=== PATIENT | female | born 1955 | race Caucasian/White ===

== ENCOUNTER 2023-02-22 10:43 | Outpatient (REF) | payer OTHER, SELFPAY ==
[2023-02-22 14:27] LABS: MANUAL DIFF FLAG NO
[2023-02-22 14:37] LABS: Basophils Percent Auto 0.6 % (0-2); Eosinophils Absolute Auto 0.3 X10*3/uL (0.0-0.4); Eosinophils Percent Auto 5.9 % (0-4); Hematocrit 42.3 % (37.0-47.0); Hemoglobin 14.2 g/dl (12.0-16.0); Lymphocytes Absolute Auto 1.7 X10*3/uL (1.2-4.9); Lymphocytes Percent Auto 32.4 % (20-40); Mean Corpuscular HGB Conc 33.6 g/dl (31.0-35.0); Mean Corpuscular Hemoglobin 31.1 pg (27.0-33.0); Mean Corpuscular Volume 92.6 fL (80.0-98.0); Mean Platelet Volume 9.4 fL (9.4-12.3); Monocytes Absolute Auto 0.4 X10*3/uL (0.1-1.2); Monocytes Percent Auto 7.4 % (2-11); Neutrophils Absolute Auto 2.8 x10*3/uL (2.0-8.3); Neutrophils Percent Auto 53.7 % (45-73); Platelet Count 277 X10*3/uL (160-400); Red Blood Count 4.57 X10*6/uL (4.20-5.50); Red Cell Distribution Width 12.2 % (11.0-16.0); White Blood Count 5.1 X10*3/uL (4.8-10.8)
[2023-02-22 14:56] LABS: Alanine Aminotransferase 25 U/L (0-31); Albumin Level 4.3 g/dL (3.5-5.0); Alkaline Phosphatase 68 U/L (39-117); Anion Gap 10 (12-20); Aspartate Amino Transferase 26 U/L (5-31); Bilirubin Total 0.8 mg/dL (0.0-1.0); Blood Urea Nitrogen 13 mg/dL (9-16); Calcium 9.8 mg/dL (8.4-10.2); Carbon Dioxide 26 mmol/L (22-29); Chloride 108 mmol/L (96-108); Cholesterol 195 mg/dL; Estimated Glomerular Filt Rate > 60; Glucose Fasting 107 mg/dL (60-99); HDL Cholesterol 59 mg/dL; Iron 97 mcg/dL (30-160); LDL Cholesterol Calculated 118 mg/dl; Percent Iron Saturation 29 % (15-50); Potassium 4.2 mmol/L (3.3-5.1); Sodium 140 mmol/L (135-145); Total Iron Binding Capacity 332 mcg/dL (228-428); Total Protein 7.3 g/dL (6.5-8.0); Triglycerides 90 mg/dL; Unsaturated Iron Binding 235 ug/dL
[2023-02-22 15:13] LABS: TSH reflex Free T4 2.07 uIU/mL (0.32-4.0); Vitamin D 25-OH Total 60.1 ng/mL (>30)
[2023-02-22 15:14] LABS: Vitamin B12 369 pg/mL (200-900)
[2023-02-22 15:56] LABS: Monotest Negative (Negative)
== END 2023-02-22 10:44 | disposition home or self-care (01) ==
LOC: HO.WFDLDS 10:43
PROVIDERS: Visit Provider Internal Medicine
DX: E78.5 Hyperlipidemia, unspecified (principal); R53.82 Chronic fatigue, unspecified
CPT/HCPCS: 36415; 80053; 80061; 82306; 82533; 82607; 83540; 84443; 85025; 86308

== ENCOUNTER → 2023-04-12 09:52 | Outpatient (REF) | payer MEDICARE, SELFPAY ==
--- NOTE | 2023-04-12 10:01 | CA_ITS ---
Acquisition Time: 2023-04-12 10:18:14 Total Exercise Time: 00:05:03 Test Indications: ABN EKG Medications: SEE H Protocol: JULIENNE Max HR: 160 BPM 105% of Pred: 152 BPM Max BP: 200/060 mmHG Max Work Load: 6.3 METS Exercise stress test exercise 5 min 3 sec of Julienne protocol achieving 105% MPHR, without chest discomfort, with moderate SOB, with isolated PVCs, with starting BP 120/80 - max BP 200/60, without EKG changes. Bps returned to baselien with rest. Test reviewed with Dr. Espinoza Referred By: Ginette Benson Overread By: Smita Orosco
== END ==
LOC: HO.CARD 09:52
PROVIDERS: PCP Internal Medicine; Visit Provider Internal Medicine
DX: R07.9 Chest pain, unspecified (principal); Z82.49 Family history of ischemic heart disease and other diseases of the circulatory system
CPT/HCPCS: 93017

== ENCOUNTER → 2023-04-12 10:01 | Outpatient (BNV) | payer MEDICARE, SELFPAY | PROVIDERS: PCP Internal Medicine; Visit Provider Nurse Practitioner | DX: R94.31 Abnormal electrocardiogram [ECG] [EKG] (principal) | CPT/HCPCS: 93016; 93018 ==

== ENCOUNTER 2023-04-27 11:50 | Outpatient (REF) | payer MEDICARE, SELFPAY ==
--- NOTE | ~2023-04-27 | MM_ITS ---
EXAMINATION: MM SCREENING DIGITAL BREAST TOMOSYNTHESIS, BILATERAL CLINICAL INFORMATION: Screening. Asymptomatic. COMPARISON: Mammography: This study is compared with prior exams dating back to 2021. TECHNIQUE: Digital breast tomosynthesis is performed in both the craniocaudal and mediolateral oblique views along with computer-aided detection (CAD). Synthesized 2D images are generated from the tomosynthesis. FINDINGS: The breasts are almost entirely fatty (ACR BI-RADS breast composition Category a). There are no significant masses, abnormal calcifications, or other abnormalities. MM/MM tomosynthesis screening BI IMPRESSION: No mammographic evidence of malignancy. ASSESSMENT: BI-RADS BI-RADS 1 - Negative RECOMMENDATION: Routine annual mammography screening. 1 year F/U This examination should not preclude the clinical evaluation of a suspicious palpable abnormality. This patient's information was entered into a reminder system with a target due date for their next mammogram.
== END 2023-04-27 11:51 | disposition home or self-care (01) ==
LOC: HO.MAMMO 11:50
PROVIDERS: PCP Internal Medicine; Visit Provider Internal Medicine
DX: Z12.31 Encounter for screening mammogram for malignant neoplasm of breast (principal)
CPT/HCPCS: 77063; 77067

== ENCOUNTER → 2023-04-27 12:00 | Outpatient (BNV) | payer MEDICARE, SELFPAY | PROVIDERS: PCP Internal Medicine; Visit Provider Radiology Diagnostic Radiology | DX: Z12.31 Encounter for screening mammogram for malignant neoplasm of breast (principal) | CPT/HCPCS: 77063; 77067 ==

== ENCOUNTER 2023-10-24 08:35 | Outpatient (REF) | payer MEDICARE, SELFPAY ==
[2023-10-24 11:38] LABS: Appearance Urine Clear; Color Urine Dark Yellow; Glucose Urine UA Negative (Negative); Leukocyte Esterase Urine Small (1+) (Negative); Nitrite Urine Negative (Negative); PH 5.5 (5.0-9.0); Specific Gravity - Urine 1.025 (1.005-1.025); UMIC TRIGGER UA YES; Urine Blood Negative (Negative); Urine Ketones Negative (Negative); Urine Protein Negative (Neg-Trace)
[2023-10-24 11:57] LABS: Bacteria Urine None Seen (None Seen); Calcium Oxalate Crystals Urine Present; Hyaline Casts Urine 0-2 /LPF (0-2); RBC Urine 0-2 /HPF (0-2)
[2023-10-24 12:05] LABS: MANUAL DIFF FLAG NO
[2023-10-24 12:18] LABS: Basophils Percent Auto 0.5 % (0-2); Eosinophils Absolute Auto 0.2 X10*3/uL (0.0-0.4); Eosinophils Percent Auto 4.3 % (0-4); Hematocrit 41.8 % (37.0-47.0); Hemoglobin 14.3 g/dl (12.0-16.0); Imm Gran Abs Auto 0.02 X10*3/uL (0.00-0.03); Imm Gran Pct Auto 0.4 % (0.0-0.4); Lymphocytes Absolute Auto 2.6 X10*3/uL (1.2-4.9); Lymphocytes Percent Auto 46.5 % (20-40); Mean Corpuscular HGB Conc 34.2 g/dl (31.0-35.0); Mean Corpuscular Hemoglobin 31.5 pg (27.0-33.0); Mean Corpuscular Volume 92.1 fL (80.0-98.0); Mean Platelet Volume 8.9 fL (9.4-12.3); Monocytes Absolute Auto 0.5 X10*3/uL (0.1-1.2); Monocytes Percent Auto 8.8 % (2-11); Neutrophils Absolute Auto 2.2 x10*3/uL (2.0-8.3); Neutrophils Percent Auto 39.5 % (45-73); Platelet Count 296 X10*3/uL (160-400); Red Blood Count 4.54 X10*6/uL (4.20-5.50); Red Cell Distribution Width 12.3 % (11.0-16.0); White Blood Count 5.6 X10*3/uL (4.8-10.8)
[2023-10-24 12:28] LABS: Estimated Average Glucose 91 mg/dL; Hemoglobin A1c % 4.8 % (<6.0)
[2023-10-24 12:45] LABS: Alanine Aminotransferase 32 U/L (0-31); Albumin Level 4.2 g/dL (3.5-5.0); Alkaline Phosphatase 71 U/L (39-117); Anion Gap 11 (12-20); Aspartate Amino Transferase 27 U/L (5-31); Bilirubin Total 0.6 mg/dL (0.0-1.0); Blood Urea Nitrogen 25 mg/dL (9-16); Calcium 9.7 mg/dL (8.4-10.2); Carbon Dioxide 26 mmol/L (22-29); Chloride 107 mmol/L (96-108); Cholesterol 225 mg/dL (<200); Estimated Glomerular Filt Rate > 60; Glucose Fasting 101 mg/dL (60-99); HDL Cholesterol 56 mg/dL (>40); LDL Cholesterol Calculated 129 mg/dL (<100); Potassium 4.1 mmol/L (3.3-5.1); Sodium 140 mmol/L (135-145); Total Protein 7.2 g/dL (6.5-8.0); Triglycerides 204 mg/dL (<150)
[2023-10-24 12:55] LABS: Vitamin B12 537 pg/mL (200-900)
[2023-10-24 13:06] LABS: TSH reflex Free T4 3.84 uIU/mL (0.32-4.0); Vitamin D 25-OH Total 34.2 ng/mL (>30)
[2023-10-25 19:19] LABS: Lyme Abs Screen <0.90 index
== END 2023-10-24 08:36 | disposition home or self-care (01) ==
LOC: HO.WFDLDS 08:35
PROVIDERS: Visit Provider Internal Medicine
DX: E78.00 Pure hypercholesterolemia, unspecified (principal); F32.A Depression, unspecified; R53.83 Other fatigue; R35.1 Nocturia
CPT/HCPCS: 36415; 80053; 80061; 81001; 82306; 82607; 83036; 84443; 85025; 86617; 86618; 87086

== ENCOUNTER 2024-03-08 12:38 | Outpatient (REF) | payer MEDICARE, SELFPAY ==
[2024-03-08 14:14] LABS: MANUAL DIFF FLAG NO
[2024-03-08 14:35] LABS: Basophils Absolute Auto 0.1 X10*3/uL (0.0-0.2); Eosinophils Absolute Auto 0.3 X10*3/uL (0.0-0.4); Eosinophils Percent Auto 5.5 % (0-4); Hematocrit 41.3 % (37.0-47.0); Hemoglobin 14.1 g/dl (12.0-16.0); Imm Gran Abs Auto 0.03 X10*3/uL (0.00-0.03); Imm Gran Pct Auto 0.6 % (0.0-0.4); Lymphocytes Absolute Auto 1.3 X10*3/uL (1.2-4.9); Lymphocytes Percent Auto 24.6 % (20-40); Mean Corpuscular HGB Conc 34.1 g/dl (31.0-35.0); Mean Corpuscular Volume 93.7 fL (80.0-98.0); Monocytes Absolute Auto 0.5 X10*3/uL (0.1-1.2); Monocytes Percent Auto 9.2 % (2-11); Neutrophils Percent Auto 59.1 % (45-73); Platelet Count 274 X10*3/uL (160-400); Red Blood Count 4.41 X10*6/uL (4.20-5.50); Red Cell Distribution Width 12.5 % (11.0-16.0); White Blood Count 5.1 X10*3/uL (4.8-10.8)
[2024-03-08 14:37] LABS: Estimated Average Glucose 85 mg/dL; Hemoglobin A1C 99.8135 umol/L; Hemoglobin A1c % 4.6 % (<6.0)
[2024-03-08 14:47] LABS: Cholesterol 179 mg/dL (<200); HDL Cholesterol 63 mg/dL (>40); LDL Cholesterol Calculated 100 mg/dL (<100); Triglycerides 81 mg/dL (<150)
[2024-03-08 14:49] LABS: Alanine Aminotransferase 41 U/L (0-31); Albumin Level 4.3 g/dL (3.5-5.0); Alkaline Phosphatase 74 U/L (39-117); Anion Gap 9 (12-20); Aspartate Amino Transferase 38 U/L (5-31); Bilirubin Direct 0.2 mg/dL (0.0-0.5); Bilirubin Total 0.8 mg/dL (0.0-1.0); Blood Urea Nitrogen 11 mg/dL (9-16); C Reactive Protein 0.33 mg/dL (< or = 0.50); Carbon Dioxide 28 mmol/L (22-29); Chloride 105 mmol/L (96-108); Estimated Glomerular Filt Rate > 60; Glucose Random 99 mg/dL (60-115); Potassium 4.2 mmol/L (3.3-5.1); Sodium 138 mmol/L (135-145); Total Protein 7.3 g/dL (6.5-8.0)
[2024-03-08 17:49] LABS: Appearance Urine Cloudy; Color Urine Dark Yellow; Glucose Urine UA Negative (Negative); Leukocyte Esterase Urine Negative (Negative); Nitrite Urine Negative (Negative); Urine Blood Negative (Negative); Urine Ketones Negative (Negative); Urine Protein Negative (Neg-Trace)
== END 2024-03-08 12:39 | disposition home or self-care (01) ==
LOC: HO.WFDLDS 12:38
PROVIDERS: Internal Medicine Rheumatology; Visit Provider Internal Medicine
DX: L40.50 Arthropathic psoriasis, unspecified (principal); R79.89 Other specified abnormal findings of blood chemistry; R73.09 Other abnormal glucose; E78.5 Hyperlipidemia, unspecified; Z13.9 Encounter for screening, unspecified
CPT/HCPCS: 36415; 80053; 80061; 81003; 82248; 83036; 85025; 86140

== ENCOUNTER 2024-03-30 09:27 | Outpatient (AMB) | payer MEDICARE, SELFPAY ==
--- NOTE | 2024-03-30 09:32 | MHC.PC.OV ---
Vital Signs 03/30/24 09:37 Height 5 ft 3 in Weight 194 lb BMI 34.4 BP 148/88 H Blood Pressure Location Lt brachial Position Sitting Respiration 12 Pulse 89 Pulse Source Pulse Oximeter Pulse Oximetry (%) 95 Oxygen Delivery Method Room Air Intake Visit Reasons: 6 month fu Intake Note: Patient is here to transition care from [facility] to [facility] for care with Dr. Benson. Patient is here for a 6 month follow up. Patient reports she has an abscessed tooth. Patient reports she is taking antibiotics and unsure which antibiotic she is currently taking. Loan Assistant Required: No Accompanied by: Self / Same As Patient Allergies No Known Allergies Allergy (Verified 03/30/24 09:44) Tobacco use date assessed: 03/30/24 Fall risk assessment: No Falls in past year Last assessed Fall Risk: 03/30/24 Dental Screening Dental Screen Date: 03/30/24 Did you have a dental visit in the last 12 months?: Yes Did you have a dental problem in the last 6 months where you did not have access to dental care?: No Was dental information given to patient?: Patient has dentist HPI HPI Comments History of Present Illness Details The patient is a 68 year old female wit a past medical history of psoriatic arthritis, depression ADD, hyperlipidemia, presenting for follow up Psoriatric arthritis: On enbrel once weekly injections and sulfasalazine 1000mg twice daily. Takes folic acid 1mg daily. Follows with rehumatology at [facility]. Sees every 6 months to a year Depression/ADD: On venlafaxine 150mg daily and Adderall 20mg daily. Does reports some fatigue. Reports frequent snoring and awakening CV: On fluvastatin. Normal stress test 2022. Still has some shortness of breath with activity. Denies chest pain. Preventive: Colonoscopy 2019-recommended 3 year. Has order Mammogram-utd ROS see HPI PHYSICAL EXAM: GENERAL: Alert and oriented x 3. NAD EYES: EOMI. Anicteric. HENT: Moist mucous membranes. Narrow oropharynx. No scleral icterus. No cervical lymphadenopathy. LUNGS: Clear to auscultation bilaterally. CARDIOVASCULAR: Regular rate and rhythm. ABDOMEN: Soft, non-tender +bs EXTREMITIES: No edema. Non-tender. SKIN: No rashes or lesions. Warm. NEUROLOGIC: No focal neurological deficits. CN II-XII grossly intact PSYCHIATRIC: Cooperative. Appropriate mood and affect [facility] Medical History (Updated 03/31/24 @ 09:52 by Ginette Benson MD) History of mammogram Psoriatic arthritis Osteoporosis High cholesterol Depression Arthritis ADD (attention deficit disorder) Surgical History Hx of varicose vein ligation History of colonoscopy Family History Mother Pneumonia Father Asbestos exposure Lung cancer Sister Dysphagia High cholesterol Brother High cholesterol Obesity Brother Dysphagia Heart disease Brother Heart attack Kidney disease Social History Household Members: Spouse Both parents involved: No Caregiver staying overnight: No Housing: House Are you a primary acute care physician to a significant other at home: No Do you presently have visiting nurse or other home services: No 75 years or older and lives alone: No Alcohol intake: never Patient Tobacco Use Status: Never used Tobacco e-Cigarette/Vaping Use: Never Used service: No Current occupational status: retired Cognitive needs: No Hearing needs: No Vision needs: No Questionnaire PHQ-9 Over the last 2 weeks, how often have you been bothered by any of the following problems? 1. Little interest or pleasure in doing things: not at all 2. Feeling down, depressed, or hopeless: not at all 3. Trouble falling or staying asleep, or sleeping too much: not at all 4. Feeling tired or having little energy: not at all 5. Poor appetite or overeating: not at all 6. Feeling bad about yourself - or that you are a failure or have let yourself or your family down: not at all 7. Trouble concentrating on things, such as reading the newspaper or watching television: not at all 8. Moving or speaking so slowly that other people could have noticed. Or the opposite - being so fidgety or restless that you have been moving around a lot more than usual: not at all 9. Thoughts that you would be better off or of hurting yourself in some way: not at all Total score: 0 Depression Screening Interpretation: Negative (neg) Depression Screening Done: Yes 41238 - PHQ-9 Billing: Yes Source: Developed by Drs. Mak Caballero, Sayra Bowles, Winston Mitchell and colleagues, with an educational vinicio from [employer]. Thrive Questionnaire Date Thrive assessed: 03/27/24 I am a: Patient What is your living situation today?: I have a steady place to live Within the past 12 months, did the food you bought not last and you didn't have the money to get more?: Never true Within the past 12 months, did you worry whether your food would run out before you got money to buy more?: Never true Do you have trouble paying for medicines?: No Do you have trouble getting transportation to medical appointments?: No Do you have trouble paying your heating and electricity bill?: No Do you have trouble taking care of your child, family member or friend?: No Do you have trouble with day-to-day activities such as bathing, preparing meals, shopping, managing finances, etc.?: No Are you currently unemployed and looking for a job?: No Are you interested in more education?: No Please select the resources that you would like help with: None Currently or been in a relationship where the following occur: No concerns reported THRIVE Score: 0 AUDIT C Alcohol Use Questionnaire (AUDIT-C) 1. How often do you have a drink containing alcohol?: Monthly or less 2. How many drinks containing alcohol do you have on a typical day when you are drinking?: 1 or 2 3. How often do you have six or more drinks on one occasion?: Never Total Score: 1 RONADL-7 AMB Questionnaire RONALD-7 Date RONALD - 7 assessed: 03/30/24 Feeling nervous, anxious, or on edge: 0 = Not at all Not being able to stop or control worryin = Not at all Worrying too much about different things: 0 = Not at all Trouble relaxin = Not at all Being so restless that it is hard to sit still: 0 = Not at all Becoming easily annoyed or irritable: 0 = Not at all Feeling afraid as if something awful might happen: 0 = Not at all Total RONALD-7 score (0-4 normal; 5-9 mild; 10-14 moderate; 15-21 severe): 0 Source: Developed by Sayra Vaughn Kurt Kroenke and colleagues, with an educational vinicio from [employer]. RONALD-7 Assessment Billing RONALD-7 Assessment Tool: RONALD-7 Assessment 00773 Physical exam (Primary Care) Vital Signs: Last Vital Signs Pulse 89 03/30/24 09:37 Resp 12 03/30/24 09:37 BP 148/88 H 03/30/24 09:37 Pulse Ox 95 03/30/24 09:37 Oxygen Delivery Method Room Air 03/30/24 09:37 BMI result Body Mass Index 34.4 Tobacco/Smoking Status: Tobacco use Status Tobacco use date assessed 03/30/24 03/30/24 09:45 Patient Tobacco Use Status Never used Tobacco 03/30/24 09:48 e-Cigarette/Vaping Use Never Used 03/30/24 09:48 PHQ-9: PHQ-9 Score PHQ-9: Total score 0 03/30/24 09:54 Depression Screening Interpretation: Negative (neg) Thrive Assessment: Date of Thrive Assessment Date Thrive assessed 03/27/24 03/30/24 09:35 Currently or been in a relationship where the following occur: No concerns reported Assessment and Plan Assessment & Plan (1) Psoriatic arthritis: Code(s): L40.50 - Arthropathic psoriasis, unspecified Plan: continue rheumatology follow up stable symptoms (2) Fatigue: Code(s): R53.83 - Other fatigue Qualifiers: Fatigue type: chronic, unspecified Qualified Code(s): R53.82 - Chronic fatigue, unspecified Plan: Reviewed labs Depressive symptoms well controlled Snoring, apnea-referral for home sleep study Orders: Referrals Sleep Medicine Referral R06.83 - Snoring, R53.83 - Other fatigue Medications: New venlafaxine ER 150 mg PO DAILY 90 caps 3RF dextroamphetamine-amphetamine 30 mg ER 1 cap PO QAM 60 days 60 caps 0RF F98.8 - Other specified behavioral and emotional disorders with onset usually occurring in childhood and adolescence fluvastatin 40 mg PO BEDTIME 90 caps 3RF Coding Level of Care Code Est Pt Level 5 (34026) Diagnoses Psoriatic arthritis L40.50 Chronic fatigue R53.82 Fatigue type: chronic, unspecified Additional Codes RONALD-7 Assessment Billing - RONALD-7 Assessment Tool: RONALD-7 Assessment 38352 ([id number]) Time Spent (min) 50
[2024-03-30 09:37] VITALS: BP 148/88; PULSE 89; RESP 12; O2SAT 95; BMI 34.4
== END 2024-03-30 10:24 | disposition home or self-care (01) ==
PROVIDERS: PCP Internal Medicine; Visit Provider Internal Medicine
DX: R53.82 Chronic fatigue, unspecified (principal); L40.50 Arthropathic psoriasis, unspecified
CPT/HCPCS: 99215

== ENCOUNTER 2024-05-21 13:15 | Outpatient (REF) | payer MEDICARE, SELFPAY ==
--- NOTE | ~2024-05-21 | MM_ITS ---
EXAMINATION: MM SCREENING DIGITAL BREAST TOMOSYNTHESIS, BILATERAL CLINICAL INFORMATION: Screening. Asymptomatic. COMPARISON: Mammography: Comparison is made with available priors TECHNIQUE: Digital breast mammography with tomosynthesis is performed in both the craniocaudal and mediolateral oblique views along with computer-aided detection (CAD). FINDINGS: There are scattered areas of fibroglandular density (ACR BI-RADS breast composition Category b). There are no significant masses, abnormal calcifications, or other abnormalities. MM/MM tomosynthesis screening BI IMPRESSION: No mammographic evidence of malignancy. ASSESSMENT: BI-RADS BI-RADS 1 - Negative RECOMMENDATION: Routine annual mammography screening. 1 year F/U This examination should not preclude the clinical evaluation of a suspicious palpable abnormality. This patient's information was entered into a reminder system with a target due date for their next mammogram. Electronically signed by: Dasia Morgan DO 05/29/2024 02:24 PM DARIUSZ
== END 2024-05-21 13:16 | disposition home or self-care (01) ==
LOC: HO.MAMMO 13:15
PROVIDERS: PCP Internal Medicine; Visit Provider Internal Medicine
DX: Z12.31 Encounter for screening mammogram for malignant neoplasm of breast (principal)
CPT/HCPCS: 77063; 77067

== ENCOUNTER → 2024-05-21 13:15 | Outpatient (BNV) | payer MEDICARE, SELFPAY | PROVIDERS: PCP Internal Medicine; Visit Provider Internal Medicine | DX: Z12.31 Encounter for screening mammogram for malignant neoplasm of breast (principal) | CPT/HCPCS: 77063; 77067 ==

== ENCOUNTER 2024-05-22 08:35 | Outpatient (AMB) | payer MEDICARE, SELFPAY ==
--- NOTE | 2024-05-22 08:42 | MHC.OFFWIV ---
Intake Vital Signs 05/22/24 08:46 Height 5 ft 3 in Weight 192 lb 6 oz BMI 34.1 BP 126/61 Blood Pressure Location Rt brachial Position Sitting Respiration 13 Pulse 96 Pulse Source Pulse Oximeter Pulse Oximetry (%) 95 Oxygen Delivery Method Room Air Intake Visit Reasons: Cough and congestion Intake Note: Patient complaining of cough x 2 weeks Patient Tobacco Use Status: Never used Tobacco Casino Controller Required: No Allergies No Known Allergies Allergy (Verified 05/22/24 08:57) Medication List - Last Reconciled 05/22/24 by Aryan Lewis CNP amoxicillin 500 mg PO TID dextroamphetamine-amphetamine 30 mg ER 1 cap PO QAM 60 days etanercept (Enbrel Mini) 50 mg subcut QWEEK fluvastatin 40 mg PO BEDTIME ibuprofen 600 mg PO TID sulfasalazine PO venlafaxine ER 150 mg PO DAILY Do you need a note to return to daycare/school/sports/work: No HPI HPI Comments History of Present Illness Details 68-year-old female presents with complaints of persistent non-productive cough for the past 2 weeks. She initial had sneezing and sore throat that subsided. No constitutional symptoms. No sick contact. No headache or unusual fatigue. She took cough suppressants with some relief. [facility] Medical History (Updated 05/22/24 @ 09:07 by Aryan Lewis CNP) History of mammogram Psoriatic arthritis Osteoporosis High cholesterol Depression Arthritis ADD (attention deficit disorder) Surgical History Hx of varicose vein ligation History of colonoscopy Family History Mother Pneumonia Father Asbestos exposure Lung cancer Sister Dysphagia High cholesterol Brother High cholesterol Obesity Brother Dysphagia Heart disease Brother Heart attack Kidney disease Social History Household Members: Spouse Both parents involved: No Caregiver staying overnight: No Housing: House Are you a primary pulmonary care nurse to a significant other at home: No Do you presently have visiting nurse or other home services: No 75 years or older and lives alone: No Alcohol intake: never Patient Tobacco Use Status: Never used Tobacco e-Cigarette/Vaping Use: Never Used service: No Current occupational status: retired Cognitive needs: No Hearing needs: No Vision needs: No Review of Systems Const Details: Denies chills, Denies fatigue, Denies fever(s), Denies headache(s) and Denies weakness ENT Reports as per HPI Cardiac Denies chest pain, Denies claudication, Denies leg edema, Denies lightheadedness, Denies palpitations, Denies dyspnea, Denies dyspnea on exertion, Denies orthopnea and Denies other (Loss of consciousness) Resp Reports cough, Denies excessive phlegm production, Denies dyspnea, Denies dyspnea on exertion, Denies snoring and Denies wheezing Physical Exam Vital Signs: Last Vital Signs Pulse 96 05/22/24 08:46 Resp 13 05/22/24 08:46 BP 126/61 05/22/24 08:46 Pulse Ox 95 05/22/24 08:46 Oxygen Delivery Method Room Air 05/22/24 08:46 BMI result Body Mass Index 34.1 Const Other: General: comfortable and no acute distress Orientation/consciousness: patient oriented x3 ENT Head is normocephalic Bilateral ear canal and TM are normal Nasal turbinates and oropharynx are pink and moist Sinuses are nontender with palpation No auricular or cervical lymphadenopathy Chest Chest palpation & inspection: normal inspection of the chest Resp Auscultation: clear to auscultation bilaterally Cardiac Palpation: normal PMI Heart sounds: S1 normal heart sound present, S2 normal heart sound present, no gallops, no murmur, no rubs Assessment & Plan Assessment & Plan (1) Viral upper respiratory illness: Code(s): J06.9 - Acute upper respiratory infection, unspecified Plan: Likely viral illness though possibly allergies No exam evidence of bacterial infection Viral illness There is no antibiotic medication for viruses.? They must run their course.? Most average 5-7 days but 7-10 days is not uncommon and up to 14 days is still possible.? A cough is often the last symptom to resolve and this can last for weeks in some cases. Rest Hydrate well -? Drink plenty of fluids.? Especially water. Tylenol or ibuprofen for muscle aches, headache, fever/discomfort May take cough suppressant as needed Zyrtec as prescribed Cannot rule out COVID-19/RSV/Flu infection Nasal swab acquired and will be sent to the lab Return for new or worsening symptoms Verbalized understanding and agreed with treatment plan. Orders: Orders SARS-CoV2/FLU/RSV Today R09.89 - Other specified symptoms and signs involving the circulatory and respiratory systems Medications: New cetirizine (Zyrtec) 10 mg PO DAILY 30 caps 1RF allergy symptoms Coding Level of Care Code Est Pt Level 3 (66355) Diagnoses Viral upper respiratory illness J06.9
[2024-05-22 08:46] VITALS: BP 126/61; PULSE 96; RESP 13; O2SAT 95; BMI 34.1
== END 2024-05-22 09:07 | disposition home or self-care (01) ==
PROVIDERS: PCP Internal Medicine; Visit Provider Nurse Practitioner Family
DX: J06.9 Acute upper respiratory infection, unspecified (principal)

== ENCOUNTER 2024-05-22 08:35 | Outpatient (REF) | payer MEDICARE, SELFPAY ==
[2024-05-22 13:06] LABS: Influenza A PCR NEGATIVE (Negative); Influenza B PCR NEGATIVE (Negative); Resp Syncy Virus RNA Qual PCR NEGATIVE (Negative); SARS COV2 PCR INHOUSE NEGATIVE (Negative)
== END 2024-05-22 08:36 | disposition home or self-care (01) ==
LOC: HO.LAB 08:35
PROVIDERS: PCP Internal Medicine; Visit Provider Nurse Practitioner Family
DX: R09.89 Other specified symptoms and signs involving the circulatory and respiratory systems (principal); J06.9 Acute upper respiratory infection, unspecified; K74.01 Hepatic fibrosis, early fibrosis; R13.14 Dysphagia, pharyngoesophageal phase; Z12.11 Encounter for screening for malignant neoplasm of colon; D12.6 Benign neoplasm of colon, unspecified
CPT/HCPCS: 0241U; 99202; 99212

== ENCOUNTER 2024-05-22 13:58 | Outpatient (AMB) | payer MEDICARE, SELFPAY ==
[2024-05-22 14:02] VITALS: BP 132/88; PULSE 120; O2SAT 94; BMI 34.0
--- NOTE | 2024-05-22 14:02 | MHC.OFFVIS ---
Vital Signs 05/22/24 14:02 Height 5 ft 3 in Weight 192 lb BMI 34.0 BP 132/88 Blood Pressure Location Rt brachial Position Sitting Pulse 120 H Pulse Source Pulse Oximeter Pulse Oximetry (%) 94 Oxygen Delivery Method Room Air Intake Visit Reasons: Colonoscopy Screening Intake Note: Relevant Flags or Indicators ? 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 Zena Elba presents in office today for a scheduled colonoscopy consultation. Pt recently moved from [place] within the last few years. Pt has recall colos q3 years per evidence of TA polyps. CC; No recent labs, diagnostics, or med orders placed. ?Pt last labs drawn as of 02/2024. Pt did have some lab work done yesterday which has not yet been processed. Relevant GI Sx as reported per pt? Vomiting w/o bleeding - related to dysphagia. ? Reflux ? Dysphagia / Painful Swallowing ? Pertinent FMHx? Father - Colon Cancer Mother - Breast Cancer. Allergies No Known Allergies Allergy (Verified 05/22/24 14:03) HPI HPI Colonoscopy Screening: Details: 68 year old? female with past medical history of depression, psoriatic arthritis, snoring is here today for pre colonoscopy screening.? Patient was sent to us by her PCP.? Last colonoscopy in 2020, 1 tubular adenoma found. Patient was recommended to return in 3 years for colonoscopy. Family history of CRC. Patient's father was diagnosed with colorectal cancer in his 60s.? Patient denies any gastrointestinal symptoms in the past or at present.? Denies history of difficulty with sedation or anesthesia in the past.? Patient reports history of sleep apnea in the past, currently not using CPAP. Patient is going for new sleep study end of this month.? Denies any history of cardiac, renal, pulmonary, or hepatic disease.?? No history of infectious? diseases like hepatitis A, B, C, HIV or tuberculosis.? Patient is not on any anticoagulation. Upon reviewing patient's lab noticed elevated liver enzymes back in February. Patient does not remember any GI symptoms at that time. Patient reports trouble swallowing solid food. Patient admits that she needs to cut to smaller pieces or chew well. Patient reports that when she tries to swallow she feels like she is choking she will end up vomiting. [facility] Medical History (Updated 05/22/24 @ 15:30 by NEETU Major-SADAF) Dysphagia Transaminitis Tubular adenoma History of mammogram Psoriatic arthritis Osteoporosis High cholesterol Depression Arthritis ADD (attention deficit disorder) Surgical History (Updated 05/22/24 @ 15:30 by NEETU Major-ASDAF) Hx of varicose vein ligation History of colonoscopy Family History (Updated 05/22/24 @ 15:32 by PHYLLIS Maojr) Mother Pneumonia Breast cancer Father Asbestos exposure Lung cancer Colon cancer Sister Dysphagia High cholesterol Brother High cholesterol Obesity Brother Dysphagia Heart disease Brother Heart attack Kidney disease Social History Household Members: Spouse Housing: House Are you a primary care transition manager to a significant other at home: No Do you presently have visiting nurse or other home services: No Alcohol intake: never Patient Tobacco Use Status: Never used Tobacco e-Cigarette/Vaping Use: Never Used service: No Current occupational status: retired Cognitive needs: No Hearing needs: No Vision needs: No Review of Systems Const Denies weight gain and Denies weight loss ENT Reports no additional complaints, Reports dysphagia and Denies odynophagia Card Reports no additional complaints Resp Reports no additional complaints GI Denies abdominal pain, Denies belching, Denies melena, Denies bloating, Denies change in bowel habits, Reports dysphagia, Denies excessive flatus, Denies dyspepsia, Reports heartburn, Denies diarrhea, Denies loose stools, Denies nausea, Denies odynophagia and Denies vomiting Reports no additional complaints Musc Reports no additional complaints Neuro Reports no additional complaints Psych Reports no additional complaints Endo Reports no additional complaints Physical Exam Vital Signs: Last Vital Signs Pulse 120 H 05/22/24 14:02 BP 132/88 05/22/24 14:02 Pulse Ox 94 05/22/24 14:02 Oxygen Delivery Method Room Air 05/22/24 14:02 BMI result Body Mass Index 34.0 Const General: healthy appearing and no acute distress Nutritional Appearance: well nourished and obese Orientation/consciousness: patient oriented x3 Resp Effort & Inspection: normal respiratory effort, able to speak in complete sentences, no tracheal deviation and symmetric chest movement Auscultation: clear to auscultation bilaterally Cardio Rate: regular rate GI Inspection: Yes normal to inspection, No distended and Yes obesity Palpation (GI): Soft to palpation, not firm, nontender and No hepatosplenomegaly present Auscultation: normal bowel sounds General: Yes no CVA tenderness Back/Spine/Pelvis Back: no CVA tenderness Skin General skin exam: elasticity normal, turgor normal and dry skin Neuro General: patient oriented x3 Psych Appearance: grossly normal Mental Status: mental status grossly normal Assessment & Plan Assessment & Plan (1) Transaminitis: Code(s): R74.01 - Elevation of levels of liver transaminase levels Category: Medical (2) Screen for colon cancer: Code(s): Z12.11 - Encounter for screening for malignant neoplasm of colon (3) Dysphagia: Code(s): R13.10 - Dysphagia, unspecified Category: Medical Qualifiers: Dysphagia type: pharyngoesophageal phase Qualified Code(s): R13.14 - Dysphagia, pharyngoesophageal phase (4) Tubular adenoma of colon: Code(s): D12.6 - Benign neoplasm of colon, unspecified Plan Patient denies any cardiac or respiratory symptoms.? Patient does admit to have trouble swallowing solid food. Denies any issues with anesthesia in the past.? History of sleep apnea, not using CPAP at this time. Patient is going for another sleep study. No history infectious diseases in the past or present.? Not on any anticoagulation therapy.? Reports family history of CRC.? Patient denies melena, hematochezia, unintentional weight loss or ribbon like stools.? Elevated liver enzymes back in February will repeat. Patient reports dysphagia, occasional choking episodes on solid food. Patient will be sent for upper GI series with barium swallow to rule out achalasia, Schatzki ring, stricture vs narrowing, disorganized esophageal motility. If reflux will treat with PPI. Patient will also be sent for upper endoscopy to rule out Barretts, Schatzki ring, possible dilation. Discussed at length the pre-procedure,? prep, diet & medications as well as what to expect prior, during and after the procedure.?? Stressed the importance of good bowel prep.? Recommended the use of Vaseline or Calmoseptine OTC & baby wipes with bowel movements to promote comfort.? ?Patient verbalizes understanding and agrees to plan of care.? She was given the opportunity to ask questions and all questions answered.? We will see her after the procedure Orders: Orders Liver Panel 05/22/24 R74.01 - Elevation of levels of liver transaminase levels [place] upper GI w Ba Swallow 05/22/24 K21.9 - Gastro-esophageal reflux disease without esophagitis Medications: New bisacodyl (Dulcolax (bisacodyl)) take 4 tabs at noon the day before your colonoscopy 20 mg (4 x 5 mg) PO ONCE 4 tabs 0RF 1 day Z12.11 - Encounter for screening for malignant neoplasm of colon polyethylene glycol 3350 (Miralax) As directed by gastroenterology department at [facility] 238 grams PO ONCE 238 grams 0RF Z12.11 - Encounter for screening for malignant neoplasm of colon Coding Level of Care Code New Pt Level 4 (73132) Diagnoses Transaminitis R74.01 Screen for colon cancer Z12.11 Pharyngoesophageal dysphagia R13.14 Dysphagia type: pharyngoesophageal phase Tubular adenoma of colon D12.6 Time Spent (min) 45 Comment 30 minutes spent with patient and additional 15 minutes spent reviewing her records
== END 2024-05-22 14:57 | disposition home or self-care (01) ==
LOC: HO.HGI 13:59
PROVIDERS: PCP Internal Medicine; Visit Provider Nurse Practitioner Family
DX: R74.01 Elevation of levels of liver transaminase levels (principal); Z12.11 Encounter for screening for malignant neoplasm of colon; R13.14 Dysphagia, pharyngoesophageal phase; D12.6 Benign neoplasm of colon, unspecified
CPT/HCPCS: 99204

== ENCOUNTER → 2024-06-11 13:00 | Outpatient (REF) | payer MEDICARE, SELFPAY | LOC: HO.SL 13:00 | PROVIDERS: PCP Internal Medicine; Visit Provider Internal Medicine | DX: R53.83 Other fatigue (principal); R06.83 Snoring | CPT/HCPCS: 95806 ==

== ENCOUNTER → 2024-06-11 13:38 | Outpatient (BNV) | payer MEDICARE, SELFPAY | PROVIDERS: PCP Internal Medicine; Visit Provider Internal Medicine | DX: R06.83 Snoring (principal) | CPT/HCPCS: 95806 ==

== ENCOUNTER 2024-07-30 09:53 | Outpatient (REF) | payer MEDICARE, SELFPAY ==
--- NOTE | ~2024-07-30 | FL_ITS ---
EXAMINATION: XR FLUOROSCOPY UPPER GI WITH AIR CLINICAL INFORMATION: Dysphagia. COMPARISON: None TECHNIQUE: Fluoroscopic air contrast upper GI examination was performed utilizing standard techniques with thin and thick barium and effervescent granules. Numerous spot images were obtained. FINDINGS: Lateral cine images of the oropharynx and hypopharynx demonstrate normal swallow mechanism with normal epiglottic inversion and soft palate elevation. No tracheal penetration, glottic or subglottic aspiration identified. No nasopharyngeal reflux present. There is ballooning of the hypopharynx with moderate cricopharyngeal achalasia present. Dual and single contrast images of the esophagus demonstrate a normal caliber and contour. There is a granular appearance of the mid and distal esophageal mucosa, suggestive of esophagitis. There is also felinization of the mid and distal esophageal mucosa. No evidence of stricture, mass, or ulcerations identified. Esophageal peristalsis was normal. A small type I hiatal hernia is present. Significant gastroesophageal reflux is seen up to the thoracic inlet. Dual contrast and single contrast images of the stomach demonstrated a normal contour and mucosal pattern without evidence of mass, ulceration, or other abnormality. Contrast freely passed into the gastric antrum and duodenal bulb without delay. Single and air-contrast images of the duodenal bulb demonstrate no abnormality. The duodenal sweep has a normal appearance, course, and mucosal fold appearance. The imaged proximal jejunum has a normal fold pattern and caliber. FLUOROSCOPY TIME: 2 minutes 56 seconds Number of Spot Images: 13 Number of Cine: 13 DOSE AREA PRODUCT: 1679 uGy-m2 (microgray-meter squared) FL/FL upper GI w Ba Swallow IMPRESSION: 1. 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 2. Granular appearance of the mid and distal esophageal mucosa, suggestive of esophagitis. 3. Felinization of the mid and distal esophageal mucosa. This is a benign finding associated chronic gastroesophageal reflux. Significant gastroesophageal reflux was observed during this examination. 4. Small type I hiatal hernia. This procedure was performed by Davi Bell PA-C, and supervised by Dr. Orosco Electronically signed by: Fuad Orosco MD 07/31/2024 02:29 PM [facility] Workstation: [id number]
== END 2024-07-30 09:54 | disposition home or self-care (01) ==
LOC: HO.XRAY 09:53
PROVIDERS: PCP Internal Medicine; Visit Provider Nurse Practitioner Family
DX: K21.9 Gastro-esophageal reflux disease without esophagitis (principal)
CPT/HCPCS: 74240

== ENCOUNTER → 2024-07-30 09:56 | Outpatient (BNV) | payer MEDICARE, SELFPAY | PROVIDERS: PCP Internal Medicine; Visit Provider Physician Assistant Surgical | DX: R13.10 Dysphagia, unspecified (principal) | CPT/HCPCS: 74246 ==

== ENCOUNTER 2024-09-25 08:20 | Day surgery (SDC) | payer MEDICARE, SELFPAY ==
[2024-09-21 08:04] VITALS: BMI 34.0
--- NOTE | 2024-09-24 10:30 | P.CONAN_ITS ---
Documented by User: Any Lanier NP 09/24/24 10:30 HPI - Anesthesia Eval Consult details Narrative: 68yo F for Upper Endoscopy and Colonoscopy PMF Active Problems Active Problems: All Active Problems Transaminitis (Acute) Viral upper respiratory illness (Acute) Screening for skin cancer (Acute) Depression (Acute) Psoriatic arthritis (Acute) Snoring (Acute) Fatigue (Acute) Past Medical History Medical History (Updated 05/22/24 @ 15:30 by PHYLLIS Major) Dysphagia Transaminitis Tubular adenoma History of mammogram Psoriatic arthritis Osteoporosis High cholesterol Depression Arthritis ADD (attention deficit disorder) Family History Family History (Updated 05/22/24 @ 15:32 by PHYLLIS Major) Mother Pneumonia Breast cancer Father Asbestos exposure Lung cancer Colon cancer Sister Dysphagia High cholesterol Brother High cholesterol Obesity Brother Dysphagia Heart disease Brother Heart attack Kidney disease Surgical History Surgical History (Updated 05/22/24 @ 15:30 by PHYLLIS Major) Hx of varicose vein ligation History of colonoscopy Social History Social History Household Members: Spouse Housing: House Are you a primary palliative care nurse practitioner to a significant other at home: No Do you presently have visiting nurse or other home services: No Alcohol intake: never Patient Tobacco Use Status: Never used Tobacco e-Cigarette/Vaping Use: Never Used Use of substances other than those prescribed or required for medical reasons: No Have you been hit, kicked, punched, or otherwise hurt by someone within the past year? If so, by whom?: No Are you DNR?: No Advance Directives: No Advance Directives Information Provided: Yes Recently lost weight without trying: No Patient : No service: No Current occupational status: retired Cognitive needs: No Hearing needs: No Vision needs: No Meds Allergies Allergy/AdvReac Type Severity Reaction Status Date / Time No Known Allergies Allergy Verified 05/22/24 14:03 Home Medications ?Medication ?Instructions ?Recorded ?Confirmed ?Last Taken ?Type etanercept 50 mg/mL (1 mL) 50 mg subcut QWEEK 03/30/24 05/22/24 Unknown History subcutaneous cartridge (Enbrel Mini) ibuprofen 600 mg tablet 600 mg PO TID 03/30/24 05/22/24 Unknown History sulfasalazine 500 mg tablet PO 03/30/24 05/22/24 Unknown History Exam Height,Weight and Vital Signs: Height 5 ft 3 in Weight 87.09 kg Assessment and Plan Assessment Anesthesia Assessment: Chart Reviewed Documented by User: Jean-Claude Taylor MD 09/25/24 09:48 [facility] Past Medical History Medical History (Updated 05/22/24 @ 15:30 by PHYLLIS Major) Dysphagia Transaminitis Tubular adenoma History of mammogram Psoriatic arthritis Osteoporosis High cholesterol Depression Arthritis ADD (attention deficit disorder) Family History Family History (Updated 05/22/24 @ 15:32 by PHYLLIS Major) Mother Pneumonia Breast cancer Father Asbestos exposure Lung cancer Colon cancer Sister Dysphagia High cholesterol Brother High cholesterol Obesity Brother Dysphagia Heart disease Brother Heart attack Kidney disease Family history of problems with anesthesia: No Surgical History Surgical History (Updated 05/22/24 @ 15:30 by PHYLLIS Major) Hx of varicose vein ligation History of colonoscopy History of Problems with Anesthesia: No Social History Social History Household Members: Spouse Housing: House Are you a primary palliative care nurse practitioner to a significant other at home: No Do you presently have visiting nurse or other home services: No Alcohol intake: never Patient Tobacco Use Status: Never used Tobacco e-Cigarette/Vaping Use: Never Used Use of substances other than those prescribed or required for medical reasons: No Have you been hit, kicked, punched, or otherwise hurt by someone within the past year? If so, by whom?: No Are you DNR?: No Advance Directives: No Advance Directives Information Provided: Yes Recently lost weight without trying: No Patient : No service: No Current occupational status: retired Cognitive needs: No Hearing needs: No Vision needs: No Meds Allergies Allergy/AdvReac Type Severity Reaction Status Date / Time No Known Allergies Allergy Verified 05/22/24 14:03 Home Medications ?Medication ?Instructions ?Recorded ?Confirmed ?Last Taken ?Type etanercept 50 mg/mL (1 mL) 50 mg subcut QWEEK 03/30/24 05/22/24 Unknown History subcutaneous cartridge (Enbrel Mini) ibuprofen 600 mg tablet 600 mg PO TID 03/30/24 05/22/24 Unknown History sulfasalazine 500 mg tablet PO 03/30/24 05/22/24 Unknown History Exam Airway Mallampati Class: II TM Dist: <=3cm Loose/Missing/Broken Teeth: No Heart: ok Lungs: ok Assessment and Plan Assessment Anesthesia Assessment: Anesthesia Plan Discussed Final Anesthetic Review Family History of Problems with Anesthesia: No History of Problems with Anesthesia: No NPO: Yes ASA Class: II Final Preanesthetic Review: No Changes in Pt Med Stat, Meds/Allgs Chart Reviewed, Consent Obtained/Reviewed and Anes Risks/Benef Reviewed Patient Risk: Intermediate Procedure Risk: Intermediate Anesthetic Plan Anesthetic Plan: Agree w/ Assess. and Plan and TIVA Disposition: Standard PACU
[2024-09-25 08:40] VITALS: BP 102/52; PULSE 95; RESP 16; TEMP 36.7; O2SAT 97
[2024-09-25] MEDS: Lactated Ringers 1,000 ML 100 ML IVCONT (08:54)
--- NOTE | 2024-09-25 08:54 | MHC.SHP ---
Pre-Procedural Eval Section A - 24 Hr Update-Section A only Date of Service: 09/25/24 Section B - Complete if H&P > 30 days Chief Complaint: Hx polyps, fam hx of colon cancer, dysphagia Present Medications: see Short Stay Collaborative assessment Allergies: Allergies Allergy/AdvReac Type Severity Reaction Status Date / Time No Known Allergies Allergy Verified 05/22/24 14:03 Review of Systems Review of Systems Comment: 10 point ROS negative Exam Exam Comment: Gen appear: No acute distress HEENT: no icterus Chest: No overt resp distress Abd: soft, nontender, nondistended Psych: Stable affect, answering questions appropriately Neuro: A/Ox3 noted to move all extremities spontaneously Ext: no peripheral edema Plan Diagnosis/Plan: Unchanged I have reviewed the history and physical and performed a pertinent physical examination on my patient. No changes have occurred unless specified. Time Spent With Patient Time: Total time managing care of this patient today ____ minutes.
--- NOTE | 2024-09-25 10:35 | P.OPN-COLO_ITS ---
Colonoscopy Operative Note Operative Note Date of Service: 09/25/24 Narrative: Procedure: Upper endoscopy and colonoscopy Indication: Dysphagia, hx of polyps, fam hx of colon ca Endoscopist: Maine Miranda MD Anesthesia Provider: Jean-Claude Taylor MD Anesthesia type: MAC Instrument: [id number] and [id number] EGD Procedure:?? The procedure, indications, preparation and potential complications were reviewed with the patient, who indicated understanding and gave written informed consent to proceed. The endoscope was introduced through the mouth, and advanced to the 2nd part of the duodenum. The mucosa was carefully examined on slow withdrawal of the endoscope. The patient tolerated the procedure well. There were no immediate complications.? EGD Findings:? * Esophagus:? Ulcerations and erythema measuring > 10 mm involving at least a 1/3rd circumference. A partially obstructing Schatzki's ring was noted above the GE junction. The Z-line was at 35 cm and displaced upwards by hiatal hernia the diaphragmatic pinch at 40 cm. Cold forceps biopsies were taken from middle and lower esophagus to rule out eosinophilic esophagitis. * Stomach:? Erythema and erosions in the antrum. Retroflexion was performed in the cardia. Random cold forceps biopsies were taken from the stomach. * Duodenum:? Edema and erythema in the 2nd portion of the duodenum.Cold forceps biopsies were taken from the duodenal bulb and 2nd portion of the duodenum to rule out celiac sprue. Additional intervention: Soft tip Savary wire was introduced through the biopsy channel of the gastroscope and advanced to the antrum. The gastroscope was then backed out. Savary Dre bougie was advanced over the guidewire and the esophagus was dilated to 16 mm with resistance felt. On relook, heme and tear was noted at the level of cricopharyngeus. ? Colonoscopy Procedure:? The patient was then turned for the colonoscopy. A digital rectal exam was performed which was normal.? A distal attachment cap was affixed to the tip of the scope and the colonoscope was then inserted through the anus and advanced through the colon and advanced to the cecum at 75 cm.? Appendiceal orifice and ileocecal valve were identified. Mucosa was carefully examined under high definition white light as the instrument was slowly withdrawn in a retrograde panoramic fashion. Retroflexion was performed in rectum. The procedure was not difficult. The quality of the prep was BBPS: 2+3+2 = adequate Withdrawal time 7 minutes Limitations: No limitations Findings: Mucosa: Normal colon mucosa. Protruding lesions: * One sessile polyp of size 8 mm noted in sigmoid colon. Cold snare polypectomy was performed. The polyp was completely removed and retrieved. * Medium internal hemorrhoids without stigmata of recent bleeding. Excavated lesions: * Moderate diverticulosis of whole colon L>R. Impression: 1. Cricopharyngeal stenosis (dilation) 2. Grade C esophagitis (biopsy) 3. Schatzki's ring 4. Hiatal hernia 5. Gastritis (biopsy) 6. Duodenitis (biopsy) 7. Normal colon mucosa 8. 1 polyp removed 9. Internal hemorrhoids 10. Diverticulosis Recommendations:?? * Follow-up path results * Avoid NSAIDs * Increase pantoprazole to BID * Repeat EGD to assess for healing and updilation of esophagus to be booked in 2-3 months * Repeat colonoscopy in 5 years due to family history
[2024-09-25 10:40] VITALS: BP 116/57; PULSE 74; RESP 16; TEMP 36.1; O2SAT 94
[2024-09-25 10:55] VITALS: BP 112/64; PULSE 69; RESP 16; TEMP 36.1; O2SAT 97
== END 2024-09-25 11:22 | disposition home or self-care (01) ==
PROVIDERS: PCP Internal Medicine; Visit Provider Internal Medicine
PROC: (CPT 43248; principal; 2024-09-25 10:00)
DX: Z12.11 Encounter for screening for malignant neoplasm of colon (principal); Z80.0 Family history of malignant neoplasm of digestive organs; Z86.0101 Personal history of adenomatous and serrated colon polyps; D12.5 Benign neoplasm of sigmoid colon; K57.30 Diverticulosis of large intestine without perforation or abscess without bleeding; K64.8 Other hemorrhoids; R13.14 Dysphagia, pharyngoesophageal phase; J39.2 Other diseases of pharynx; K21.9 Gastro-esophageal reflux disease without esophagitis; K29.50 Unspecified chronic gastritis without bleeding; K22.2 Esophageal obstruction; K20.80 Other esophagitis without bleeding; K20.90 Esophagitis, unspecified without bleeding; K44.9 Diaphragmatic hernia without obstruction or gangrene; K31.7 Polyp of stomach and duodenum; L40.50 Arthropathic psoriasis, unspecified; R06.83 Snoring; R74.01 Elevation of levels of liver transaminase levels; E78.00 Pure hypercholesterolemia, unspecified; M81.0 Age-related osteoporosis without current pathological fracture; F98.8 Other specified behavioral and emotional disorders with onset usually occurring in childhood and adolescence; F32.A Depression, unspecified; Z85.3 Personal history of malignant neoplasm of breast; Z79.1 Long term (current) use of non-steroidal anti-inflammatories (NSAID); Z79.899 Other long term (current) drug therapy
CPT/HCPCS: 43248; 43239; G0105; 88305; 88313; 88342; C1769; J2003; J2704; J3010

== ENCOUNTER → 2024-09-25 08:20 | Outpatient (BNV) | payer MEDICARE, SELFPAY | PROVIDERS: PCP Internal Medicine; Visit Provider Internal Medicine | DX: Z12.11 Encounter for screening for malignant neoplasm of colon (principal); Z80.0 Family history of malignant neoplasm of digestive organs; D12.5 Benign neoplasm of sigmoid colon; K57.90 Diverticulosis of intestine, part unspecified, without perforation or abscess without bleeding; R13.10 Dysphagia, unspecified; K22.2 Esophageal obstruction; K20.90 Esophagitis, unspecified without bleeding; K29.70 Gastritis, unspecified, without bleeding; K29.80 Duodenitis without bleeding | CPT/HCPCS: 43239; 43248; 45385 ==

== ENCOUNTER 2024-09-28 09:14 | Outpatient (REF) | payer MEDICARE, SELFPAY ==
[2024-09-28 11:33] LABS: MANUAL DIFF FLAG NO
[2024-09-28 11:39] LABS: Basophils Percent Auto 0.5 % (0-2); Eosinophils Absolute Auto 0.2 X10*3/uL (0.0-0.4); Eosinophils Percent Auto 3.3 % (0-4); Hematocrit 40.4 % (37.0-47.0); Hemoglobin 13.8 g/dl (12.0-16.0); Imm Gran Abs Auto 0.05 X10*3/uL (0.00-0.03); Imm Gran Pct Auto 0.9 % (0.0-0.4); Lymphocytes Absolute Auto 2.1 X10*3/uL (1.2-4.9); Lymphocytes Percent Auto 38.9 % (20-40); Mean Corpuscular HGB Conc 34.2 g/dl (31.0-35.0); Mean Corpuscular Hemoglobin 30.7 pg (27.0-33.0); Mean Corpuscular Volume 89.8 fL (80.0-98.0); Mean Platelet Volume 9.2 fL (9.4-12.3); Monocytes Absolute Auto 0.5 X10*3/uL (0.1-1.2); Monocytes Percent Auto 8.4 % (2-11); Neutrophils Absolute Auto 2.6 x10*3/uL (2.0-8.3); Platelet Count 288 X10*3/uL (160-400); Red Cell Distribution Width 12.6 % (11.0-16.0); White Blood Count 5.5 X10*3/uL (4.8-10.8)
[2024-09-28 11:45] LABS: Estimated Average Glucose 103 mg/dL; Hemoglobin A1c % 5.2 % (<6.0)
[2024-09-28 11:52] LABS: Alanine Aminotransferase 37 U/L (0-31); Aspartate Amino Transferase 36 U/L (5-31); C Reactive Protein 0.17 mg/dL (< or = 0.50); Estimated Glomerular Filt Rate > 60
[2024-09-28 11:54] LABS: Alanine Aminotransferase 40 U/L (0-31); Alkaline Phosphatase 73 U/L (39-117); Anion Gap 10 (12-20); Aspartate Amino Transferase 35 U/L (5-31); Bilirubin Direct 0.2 mg/dL (0.0-0.5); Bilirubin Total 0.7 mg/dL (0.0-1.0); Blood Urea Nitrogen 17 mg/dL (9-16); Calcium 9.4 mg/dL (8.4-10.2); Carbon Dioxide 27 mmol/L (22-29); Chloride 105 mmol/L (96-108); Cholesterol 169 mg/dL (<200); Estimated Glomerular Filt Rate > 60; Glucose Random 98 mg/dL (60-115); HDL Cholesterol 52 mg/dL (>40); LDL Cholesterol Calculated 103 mg/dL (<100); Potassium 4.2 mmol/L (3.3-5.1); Sodium 138 mmol/L (135-145); Total Protein 7.1 g/dL (6.5-8.0); Triglycerides 73 mg/dL (<150)
[2024-09-28 12:14] LABS: TSH reflex Free T4 2.11 uIU/mL (0.32-4.0)
== END 2024-09-28 09:15 | disposition home or self-care (01) ==
LOC: HO.WFDLDS 09:14
PROVIDERS: Referring Provider Nurse Practitioner Family; Visit Provider Internal Medicine
DX: R74.01 Elevation of levels of liver transaminase levels (principal); L40.50 Arthropathic psoriasis, unspecified; F32.A Depression, unspecified; R53.82 Chronic fatigue, unspecified; Z13.1 Encounter for screening for diabetes mellitus
CPT/HCPCS: 36415; 80053; 80061; 80076; 82040; 82248; 82565; 83036; 84443; 84450; 84460; 85025; 86140

== ENCOUNTER 2024-10-08 15:43 | Outpatient (AMB) | payer MEDICARE, SELFPAY ==
--- NOTE | 2024-10-08 15:59 | A.OFFPC_ITS ---
Vital Signs 10/08/24 16:06 Height 5 ft 3 in Weight 191 lb 4 oz BMI 33.9 BP 112/72 Blood Pressure Location Lt brachial Position Sitting Pulse 65 Pulse Source Pulse Oximeter Pulse Oximetry (%) 93 Oxygen Delivery Method Room Air Intake Visit Reasons: PE Intake Note: Physical. Tingling left arm, neck pain Braider Setter Required: No Allergies No Known Allergies Allergy (Verified 10/11/24 14:59) Medication List - Last Reconciled 10/13/24 by Ginette Benson MD dextroamphetamine-amphetamine 30 mg ER 1 cap PO QAM 60 days etanercept (Enbrel Mini) 50 mg subcut QWEEK fluvastatin 40 mg PO BEDTIME gabapentin 300 mg PO BEDTIME nitrofurantoin macrocrystal 100 mg PO Q12H pantoprazole 40 mg PO BID pravastatin 10 mg PO BEDTIME trazodone 50 mg PO BEDTIME venlafaxine ER 150 mg PO DAILY Tobacco use date assessed: 10/08/24 Fall risk assessment: No Falls in past year Last assessed Fall Risk: 10/08/24 Dental Screening Dental Screen Date: 03/30/24 HPI HPI Comments History of Present Illness Details The patient is a 69 year old female wit a past medical history of psoriatic arthritis, depression ADD, hyperlipidemia, presenting for physical exam Psoriatric arthritis: On enbrel once weekly injections and sulfasalazine 1000mg twice daily. Takes folic acid 1mg daily. Follows with rehumatology at [facility]. Sees every 6 months to a year Depression/ADD: On venlafaxine 150mg daily and Adderall 20mg daily. Negative sleep study-reviewed with patient CV: On fluvastatin. Normal stress test 2022. Still has some shortness of breath with activity which has been stable. Denies chest pain. Left arm tingling numbness, discomfort stemming from left neck shoulder Preventive: Colonoscopy 2020-recommended 3 year. Has order Mammogram-utd HRA reviewed No falls Negative depression screening Care team Medications reviewed ROS see HPI PHYSICAL EXAM: GENERAL: Alert and oriented x 3. NAD EYES: EOMI. Anicteric. HENT: Moist mucous membranes. Narrow oropharynx. No scleral icterus. No cervical lymphadenopathy. LUNGS: Clear to auscultation bilaterally. CARDIOVASCULAR: Regular rate and rhythm. ABDOMEN: Soft, non-tender +bs EXTREMITIES: No edema. Non-tender. SKIN: No rashes or lesions. Warm. NEUROLOGIC: No focal neurological deficits. CN II-XII grossly intact PSYCHIATRIC: Cooperative. Appropriate mood and affect [facility] Medical History Hematuria Dysphagia Transaminitis Tubular adenoma History of mammogram Psoriatic arthritis Osteoporosis High cholesterol Depression Arthritis ADD (attention deficit disorder) Surgical History Hx of varicose vein ligation History of colonoscopy Family History Mother Pneumonia Breast cancer Father Asbestos exposure Lung cancer Colon cancer Sister Dysphagia High cholesterol Brother High cholesterol Obesity Brother Dysphagia Heart disease Brother Heart attack Kidney disease Social History Household Members: Spouse Housing: House Are you a primary rn coronary care unit to a significant other at home: No Do you presently have visiting nurse or other home services: No Alcohol intake: never Patient Tobacco Use Status: Never used Tobacco e-Cigarette/Vaping Use: Never Used service: No Current occupational status: retired Cognitive needs: No Hearing needs: No Vision needs: No Questionnaire Thrive Questionnaire Date Thrive assessed: 03/27/24 I am a: Patient What is your living situation today?: I have a steady place to live Within the past 12 months, did the food you bought not last and you didn't have the money to get more?: Never true Within the past 12 months, did you worry whether your food would run out before you got money to buy more?: Never true Do you have trouble paying for medicines?: No Do you have trouble getting transportation to medical appointments?: No Do you have trouble paying your heating and electricity bill?: No Do you have trouble taking care of your child, family member or friend?: No Do you have trouble with day-to-day activities such as bathing, preparing meals, shopping, managing finances, etc.?: No Are you currently unemployed and looking for a job?: No Are you interested in more education?: No Currently or been in a relationship where the following occur: No concerns reported THRIVE Score: 0 AUDIT C Alcohol Use Questionnaire (AUDIT-C) 1. How often do you have a drink containing alcohol?: Monthly or less 2. How many drinks containing alcohol do you have on a typical day when you are drinking?: 1 or 2 3. How often do you have six or more drinks on one occasion?: Never Total Score: 1 ROANLD-7 AMB Questionnaire RONALD-7 Date RONALD - 7 assessed: 03/30/24 Source: Developed by Drs. Mak Caballero, Sayra Bowles, Winston Mitchell and colleagues, with an educational vinicio from [employer]. Physical exam (Primary Care) Vital Signs: Last Vital Signs Pulse 65 10/08/24 16:06 BP 112/72 10/08/24 16:06 Pulse Ox 93 10/08/24 16:06 Oxygen Delivery Method Room Air 10/08/24 16:06 BMI result Body Mass Index 33.9 Tobacco/Smoking Status: Tobacco use Status Tobacco use date assessed 10/08/24 10/08/24 16:04 Patient Tobacco Use Status Never used Tobacco 10/08/24 16:04 e-Cigarette/Vaping Use Never Used 10/08/24 16:04 Thrive Assessment: Date of Thrive Assessment Date Thrive assessed 03/27/24 10/08/24 16:04 Currently or been in a relationship where the following occur: No concerns reported Coding Level of Care Code Est Pt Level 4 (64415) Diagnoses Encounter for annual wellness visit (AWV) in Medicare patient Z00.00 Psoriatic arthritis L40.50 Cervical radiculopathy M54.12 Neck pain M54.2 Assessment & Plan Assessment & Plan (1) Encounter for annual wellness visit (AWV) in Medicare patient: Code(s): Z00.00 - Encounter for general adult medical examination without abnormal findings Category: Medical (2) Psoriatic arthritis: Code(s): L40.50 - Arthropathic psoriasis, unspecified Category: Medical (3) Cervical radiculopathy: Code(s): M54.12 - Radiculopathy, cervical region Category: Medical (4) Neck pain: Code(s): M54.2 - Cervicalgia Category: Medical Plan 69 y/o for AWV HRA reviewed scanned chronic medical conditions reviewed Meds reconciled Medications: New pravastatin 10 mg PO BEDTIME 90 tabs 3RF gabapentin 300 mg PO BEDTIME 90 caps 3RF
[2024-10-08 16:06] VITALS: BP 112/72; PULSE 65; O2SAT 93; BMI 33.9
== END 2024-10-08 16:47 | disposition home or self-care (01) ==
LOC: HO.HMCFM 15:44
PROVIDERS: PCP Internal Medicine; Visit Provider Internal Medicine
DX: Z00.00 Encounter for general adult medical examination without abnormal findings (principal); L40.50 Arthropathic psoriasis, unspecified; M54.12 Radiculopathy, cervical region; M54.2 Cervicalgia

== ENCOUNTER → 2024-10-08 15:43 | Outpatient (BNVA) | payer MEDICARE, SELFPAY | PROVIDERS: PCP Internal Medicine; Visit Provider Internal Medicine | DX: Z00.00 Encounter for general adult medical examination without abnormal findings (principal); L40.50 Arthropathic psoriasis, unspecified; M54.12 Radiculopathy, cervical region; M54.2 Cervicalgia | CPT/HCPCS: 99212 ==

== ENCOUNTER 2024-10-09 10:47 | Outpatient (AMB) | payer MEDICARE, SELFPAY ==
--- NOTE | 2024-10-09 10:51 | A.OFFVIS_ITS ---
Vital Signs 10/09/24 11:01 Height 5 ft 3 in Weight 191 lb BMI 33.8 BP 146/88 H Blood Pressure Location Lt brachial Position Sitting Pulse 100 Pulse Source Pulse Oximeter Pulse Oximetry (%) 99 Oxygen Delivery Method Room Air Intake Visit Reasons: s/p colo and EGD Ruben Intake Note: ESTABLISHED PATIENT for s/p duo w/ BZ Chief Complaint; C/O occasional GI upset and nausea. Pt reports recent med changes per PCP and is unsure if that is related or not. No additional concerns. Director Of Strategic Communications Required: No Accompanied by: Self / Same As Patient Allergies No Known Allergies Allergy (Verified 10/11/24 14:59) HPI HPI s/p colo and EGD Ruben: Details: LAST VISIT: Transaminitis Screen for colon cancer Dysphagia Tubular adenoma of colon Plan Patient denies any cardiac or respiratory symptoms.? Patient does admit to have trouble swallowing solid food. Denies any issues with anesthesia in the past.? History of sleep apnea, not using CPAP at this time. Patient is going for [facility] sleep study. No history infectious diseases in the past or present.? Not on any anticoagulation therapy.? Reports family history of CRC.? Patient denies melena, hematochezia, unintentional weight loss or ribbon like stools.? Elevated liver enzymes back in February will repeat. Patient reports dysphagia, occasional choking episodes on solid food. Patient will be sent for upper GI series with barium swallow to rule out achalasia, Schatzki ring, stricture vs narrowing, disorganized esophageal motility. If reflux will treat with PPI. Patient will also be sent for upper endoscopy to rule out Barretts, Schatzki ring, possible dilation. Discussed at length the pre-procedure,? prep, diet & medications as well as what to expect prior, during and after the procedure.?? Stressed the importance of good bowel prep.? Recommended the use of Vaseline or Calmoseptine OTC & baby wipes with bowel movements to promote comfort.? ?Patient verbalizes understanding and agrees to plan of care.? She was given the opportunity to ask questions and all questions answered.? We will see her after the procedure Orders Orders Liver Panel 05/22/24 R74.01 FL upper GI w Ba Swallow 05/22/24 K21.9 Medications New bisacodyl (Dulcolax (bisacodyl)) take 4 tabs at noon the day before your colonoscopy 20 mg (4 x 5 mg) PO ONCE 4 tabs 0RF 1 day Z12.11 polyethylene glycol 3350 (Miralax) As directed by gastroenterology department at [facility] 238 grams PO ONCE 238 grams 0RF Z12.11 UPPER ENDO AND COLO EGD Findings:? * Esophagus:? Ulcerations and erythema measuring > 10 mm involving at least a 1/3rd circumference. A partially obstructing Schatzki's ring was noted above the GE junction. The Z-line was at 35 cm and displaced upwards by hiatal hernia the diaphragmatic pinch at 40 cm. Cold forceps biopsies were taken from middle and lower esophagus to rule out eosinophilic esophagitis. * Stomach:? Erythema and erosions in the antrum. Retroflexion was performed in the cardia. Random cold forceps biopsies were taken from the stomach. * Duodenum:? Edema and erythema in the 2nd portion of the duodenum.Cold forceps biopsies were taken from the duodenal bulb and 2nd portion of the duodenum to rule out celiac sprue.Additional intervention: Soft tip Savary wire was introduced through the biopsy channel of the gastroscope and advanced to the antrum. The gastroscope was then backed out. Savary Dre bougie was advanced over the guidewire and the esophagus was dilated to 16 mm with resistance felt. On relook, heme and tear was noted at the level of cricopharyngeus. ? Colonoscopy Procedure:? The patient was then turned for the colonoscopy. A digital rectal exam was performed which was normal.? A distal attachment cap was affixed to the tip of the scope and the colonoscope was then inserted through the anus and advanced through the colon and advanced to the cecum at 75 cm.? Appendiceal orifice and ileocecal valve were identified. Mucosa was carefully examined under high definition white light as the instrument was slowly withdrawn in a retrograde panoramic fashion. Retroflexion was performed in rectum. The procedure was not difficult. The quality of the prep was BBPS: 2+3+2 = adequate Withdrawal time 7 minutes Limitations: No limitations Findings: Mucosa: Normal colon mucosa. Protruding lesions: * One sessile polyp of size 8 mm noted in sigmoid colon. Cold snare polypectomy was performed. The polyp was completely removed and retrieved. * Medium internal hemorrhoids without stigmata of recent bleeding.Excavated lesions: * Moderate diverticulosis of whole colon L>R. Impression: 1. Cricopharyngeal stenosis (dilation) 2. Grade C esophagitis (biopsy) 3. Schatzki's ring 4. Hiatal hernia 5. Gastritis (biopsy) 6. Duodenitis (biopsy) 7. Normal colon mucosa 8. 1 polyp removed 9. Internal hemorrhoids 10. Diverticulosis Recommendations:?? * Follow-up path results * Avoid NSAIDs * Increase pantoprazole to BID * Repeat EGD to assess for healing and updilation of esophagus to be booked in 2-3 months * Repeat colonoscopy in 5 years due to family history PATHOLOGY Diagnosis A. Duodenum, biopsy: Duodenal mucosa with predominantly preserved villi, and Kolton's gland hyperplasia, otherwise no specific change. B. Stomach, biopsy: Gastric body mucosa and focal gastric antral mucosa, with congestion and minimal chronic inactive gastritis; negative for H. pylori, intestinal metaplasia and dysplasia. C. Esophagus, lower, biopsy: Squamous mucosa with many intraepithelial eosinophils (focally up to 25 per high-power field) consistent with esophagitis, and gastric cardia-fundic type mucosa with minimal chronic inactive inflammation; negative for intestinal metaplasia and dysplasia. D. Esophagus, middle, biopsy: Squamous mucosa with many intraepithelial eosinophils (focally up to 20 per high-power field) consistent with esophagitis; no columnar mucosa present. E. Colon, sigmoid, polyp: Tubular adenoma; negative for high-grade dysplasia and carcinoma. Comment: (C and D): The findings may be due to reflux esophagitis or eosinophilic esophagitis and clinical correlation is necessary TODAY'S VISIT Patient is due for follow-up with discussed upper endoscopy colonoscopy results. Patient reports that she has been feeling better since last visit. As mentioned above in endoscopy and colonoscopy report patient had dilation of cricopharyngeal achalasia and Schatzki ring. Occasional acid reflux depending on what she eats. Patient is pantoprazole was increased to twice a day. Patient is trying to avoid dietary triggers and eating related night. Denies any nausea or vomiting. Denies dyspepsia, dysphagia or odynophagia. One tubular adenoma found and moderate diverticulosis of the entire colon L>R. Patient has a family history of CRC and will need to repeat colonoscopy in 5 years. [facility] Medical History Hematuria Dysphagia Transaminitis Tubular adenoma History of mammogram Psoriatic arthritis Osteoporosis High cholesterol Depression Arthritis ADD (attention deficit disorder) Surgical History Hx of varicose vein ligation History of colonoscopy Family History Mother Pneumonia Breast cancer Father Asbestos exposure Lung cancer Colon cancer Sister Dysphagia High cholesterol Brother High cholesterol Obesity Brother Dysphagia Heart disease Brother Heart attack Kidney disease Social History Household Members: Spouse Housing: House Are you a primary social worker palliative care to a significant other at home: No Do you presently have visiting nurse or other home services: No Alcohol intake: never Patient Tobacco Use Status: Never used Tobacco e-Cigarette/Vaping Use: Never Used service: No Current occupational status: retired Cognitive needs: No Hearing needs: No Vision needs: No Review of Systems Const Denies weight gain and Denies weight loss ENT Reports no additional complaints, Denies dysphagia and Denies odynophagia Card Reports no additional complaints Resp Reports no additional complaints GI Denies abdominal pain, Denies belching, Denies melena, Reports bloating, Denies change in bowel habits, Denies dysphagia, Denies excessive flatus, Denies dyspepsia, Reports heartburn, Denies diarrhea, Denies loose stools, Denies nausea, Denies odynophagia and Denies vomiting Reports no additional complaints Musc Reports no additional complaints Neuro Reports no additional complaints Psych Reports no additional complaints Endo Reports no additional complaints Physical Exam Vital Signs: Last Vital Signs Pulse 100 10/09/24 11:01 BP 146/88 H 10/09/24 11:01 Pulse Ox 99 10/09/24 11:01 Oxygen Delivery Method Room Air 10/09/24 11:01 BMI result Body Mass Index 33.8 Const General: healthy appearing and no acute distress Nutritional Appearance: well nourished and obese Orientation/consciousness: patient oriented x3 Resp Effort & Inspection: normal respiratory effort, able to speak in complete sentences, no tracheal deviation and symmetric chest movement Auscultation: clear to auscultation bilaterally Cardio Rate: regular rate GI Inspection: Yes normal to inspection, No distended and Yes obesity Palpation (GI): Soft to palpation, not firm, nontender and No hepatosplenomegaly present Auscultation: normal bowel sounds General: Yes no CVA tenderness Back/Spine/Pelvis Back: no CVA tenderness Skin General skin exam: elasticity normal, turgor normal and dry skin Neuro General: patient oriented x3 Psych Appearance: grossly normal Mental Status: mental status grossly normal Results Reviewed Results Reviewed: Laboratory Tests 03/08/24 09/28/24 12:48 09:28 Hemoglobin A1c % 5.2 Direct Bilirubin 0.2 AST 38 H 36 H ALT 41 H 37 H Alkaline Phosphatase 73 C-Reactive Protein 0.17 TSH 2.11 UPPER GI SERIES IMPRESSION: 1. 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 2. Granular appearance of the mid and distal esophageal mucosa, suggestive of esophagitis. 3. Felinization of the mid and distal esophageal mucosa. This is a benign finding associated chronic gastroesophageal reflux. Significant gastroesophageal reflux was observed during this examination. 4. Small type I hiatal hernia. Assessment & Plan Assessment & Plan (1) Transaminitis: Code(s): R74.01 - Elevation of levels of liver transaminase levels Category: Medical (2) Dysphagia: Code(s): R13.10 - Dysphagia, unspecified Category: Medical Qualifiers: Dysphagia type: pharyngoesophageal phase Qualified Code(s): R13.14 - Dysphagia, pharyngoesophageal phase (3) Tubular adenoma of colon: Code(s): D12.6 - Benign neoplasm of colon, unspecified (4) Diverticulosis: Code(s): K57.90 - Diverticulosis of intestine, part unspecified, without perforation or abscess without bleeding (5) GERD (gastroesophageal reflux disease): Code(s): K21.9 - Gastro-esophageal reflux disease without esophagitis Qualifiers: Esophagitis presence: with esophagitis Esophagitis bleeding: without hemorrhage Qualified Code(s): K21.00 - Gastro-esophageal reflux disease with esophagitis, without bleeding Plan Patient will continue taking pantoprazole twice a day. Avoid dietary triggers only as hiking. Staying upright for minimum 3 hours after meals discussed with patient. Transaminitis noted. Low fat, low salt, low carb high-protein diet recommended. Patient also will try to incorporate more fiber in her diet. Diverticulosis noted in the entire colon. List of food high in fiber given to patient. Patient will go for another endoscopy to re-evaluate diagnosed with esophagitis. I will see her after the procedure, sooner on as needed basis. Patient is agreeable to this plan and verbalizes understanding of instructions. She was given the opportunity to ask questions and all questions answered. Thank you for allowing me to participate in her care Medications: Changed From pantoprazole take one tablet half an hour before breakfast 40 mg PO BID 30 tabs 2RF K21.9 - Gastro-esophageal reflux disease without esophagitis To pantoprazole 40 mg PO BID 60 tabs 2RF K21.9 - Gastro-esophageal reflux disease without esophagitis Coding Level of Care Code Est Pt Level 4 (29292) Complex EM visit Add On G2211 Diagnoses Transaminitis R74.01 Pharyngoesophageal dysphagia R13.14 Dysphagia type: pharyngoesophageal phase Tubular adenoma of colon D12.6 Diverticulosis K57.90 Gastroesophageal reflux disease with esophagitis without hemorrhage K21.00 Esophagitis presence: with esophagitis Esophagitis bleeding: without hemorrhage Time Spent (min) 35 Comment 25 minutes spent with patient and additional 10 minutes spent reviewing her records
[2024-10-09 11:01] VITALS: BP 146/88; PULSE 100; O2SAT 99; BMI 33.8
== END 2024-10-09 11:25 | disposition home or self-care (01) ==
LOC: HO.HGI 10:48
PROVIDERS: PCP Internal Medicine; Visit Provider Nurse Practitioner Family
DX: R74.01 Elevation of levels of liver transaminase levels (principal); R13.14 Dysphagia, pharyngoesophageal phase; D12.6 Benign neoplasm of colon, unspecified; K57.90 Diverticulosis of intestine, part unspecified, without perforation or abscess without bleeding; K21.00 Gastro-esophageal reflux disease with esophagitis, without bleeding
CPT/HCPCS: 99214; G2211

== ENCOUNTER → 2024-10-09 10:47 | Outpatient (BNVA) | payer MEDICARE, SELFPAY | PROVIDERS: PCP Internal Medicine; Visit Provider Nurse Practitioner Family | DX: K21.00 Gastro-esophageal reflux disease with esophagitis, without bleeding (principal); K22.2 Esophageal obstruction; R74.01 Elevation of levels of liver transaminase levels; R13.14 Dysphagia, pharyngoesophageal phase; D12.6 Benign neoplasm of colon, unspecified; K57.90 Diverticulosis of intestine, part unspecified, without perforation or abscess without bleeding | CPT/HCPCS: 99212 ==

== ENCOUNTER 2024-10-11 14:57 | Outpatient (AMB) | payer MEDICARE, SELFPAY ==
--- NOTE | 2024-10-11 14:59 | MHC.PC.OV ---
Vital Signs 10/11/24 15:03 Height 5 ft 3 in Weight 190 lb BMI 33.7 BP 122/68 Blood Pressure Location Lt brachial Position Sitting Respiration 12 Pulse 77 Pulse Source Pulse Oximeter Temp 97.1 F Temp Source Oral Pulse Oximetry (%) 98 Oxygen Delivery Method Room Air Intake Visit Reasons: Urine is red, requesting UA Intake Note: Patient c/o red urine x 2 weeks Unarmed Security Officer Required: No Allergies No Known Allergies Allergy (Verified 10/11/24 14:59) Tobacco use date assessed: 10/11/24 Fall risk assessment: No Falls in past year Last assessed Fall Risk: 10/11/24 Dental Screening Dental Screen Date: 10/11/24 Did you have a dental visit in the last 12 months?: Yes Did you have a dental problem in the last 6 months where you did not have access to dental care?: No Was dental information given to patient?: Patient has dentist HPI HPI Comments History of Present Illness Details This is a 69-year-old female with a past medical history of psoriatic arthritis and cervical radiculopathy presenting for urinary problems. She called the office this week because for the last few days she has noticed a reddish/pinkish tinge to her urine. It has not happened every time she urinates. She is not passing clots. She does not have a history of kidney stones. She has some mild tenderness over the bladder area. She denies frequency, dysuria, flank pain, fevers, chills, nausea or vomiting. Her appetite has been normal. She is drinking a lot of fluids. She is not on anticoagulants or aspirin. No increased fatigue. Patient said she felt a little lightheaded this morning, but she is not dizzy since then. Denies vaginal bleeding or discharge. She wears a pad, and there has not been any blood on this. Endorses mild stress incontinence. She also wants to mention that she is going to have the x-ray done of her neck that her primary care provider ordered for evaluation of cervical radiculopathy. She has no chest pain or shortness of breath associated with her neck pain. She has also messaged her multiple resaw operator because she had a EGD/colonoscopy. It shows evidence of gastritis, but she also saw on the report that there was a small tear and heme, and she wanted to make sure that no other intervention was needed. She denies abdominal pain currently, vomiting, hematemesis, black or tarry stools. ROS: Constitutional: No unexplained weight loss, fever, chills, fatigue or night sweats. Eyes: No vision changes, blurry vision, double vision Respiratory: No shortness of breath, cough or sputum production. Cardiovascular: No chest pain, chest pressure or chest discomfort. No palpitations or pedal edema. Gastrointestinal: No anorexia, nausea, vomiting or diarrhea. No abdominal pain or blood in stool. Genitourinary: see HPI Neurologic: No headache, syncope, unilateral weakness, ataxia, numbness Musculoskeletal: see HPI Hematologic/Lymphatics: No bleeding or bruising. Skin: No rash . Physical exam: Constitutional: Alert, in no distress. Neck: Supple, Full range of motion. No lymphadenopathy. Respiratory: Clear to auscultation. Cardiovascular: S1 S2 regular. No murmurs. Gastrointestinal: Abdomen soft, non-distended. Normal bowel sounds. No palpable masses. No rebound or guarding. Mild tenderness over the pelvic area. Genitourinary: No costovertebral angle tenderness. Neurologic: No focal neurological deficits. Upper extremity strength 5/5 bilaterally. Musculoskeletal: No gross deformities. Normal range of motion. No midline spinal tenderness of the cervical spine. Extremities: Warm and well perfused. No clubbing, cyanosis or edema. 3+ peripheral pulses bilaterally. Psychiatric: Normal mood and affect [facility] Medical History (Updated 10/11/24 @ 15:19 by AWA Higuera) Hematuria Dysphagia Transaminitis Tubular adenoma History of mammogram Psoriatic arthritis Osteoporosis High cholesterol Depression Arthritis ADD (attention deficit disorder) Surgical History Hx of varicose vein ligation History of colonoscopy Family History Mother Pneumonia Breast cancer Father Asbestos exposure Lung cancer Colon cancer Sister Dysphagia High cholesterol Brother High cholesterol Obesity Brother Dysphagia Heart disease Brother Heart attack Kidney disease Social History Household Members: Spouse Housing: House Are you a primary patient care assistant to a significant other at home: No Do you presently have visiting nurse or other home services: No Alcohol intake: never Patient Tobacco Use Status: Never used Tobacco e-Cigarette/Vaping Use: Never Used service: No Current occupational status: retired Cognitive needs: No Hearing needs: No Vision needs: No Questionnaire PHQ-9 Over the last 2 weeks, how often have you been bothered by any of the following problems? 1. Little interest or pleasure in doing things: not at all 2. Feeling down, depressed, or hopeless: not at all 3. Trouble falling or staying asleep, or sleeping too much: several days 4. Feeling tired or having little energy: several days 5. Poor appetite or overeating: several days 6. Feeling bad about yourself - or that you are a failure or have let yourself or your family down: not at all 7. Trouble concentrating on things, such as reading the newspaper or watching television: not at all 8. Moving or speaking so slowly that other people could have noticed. Or the opposite - being so fidgety or restless that you have been moving around a lot more than usual: not at all 9. Thoughts that you would be better off or of hurting yourself in some way: not at all Total score: 3 13311 - PHQ-9 Billing: Yes Source: Developed by Drs. Mak Cablalero, Sayra Bowles, Winston Mitchell and colleagues, with an educational vinicio from [employer]. Thrive Questionnaire Date Thrive assessed: 10/11/24 I am a: Patient What is your living situation today?: I have a steady place to live Within the past 12 months, did the food you bought not last and you didn't have the money to get more?: Never true Within the past 12 months, did you worry whether your food would run out before you got money to buy more?: Never true Do you have trouble paying for medicines?: No Do you have trouble getting transportation to medical appointments?: No Do you have trouble paying your heating and electricity bill?: No Do you have trouble taking care of your child, family member or friend?: No Do you have trouble with day-to-day activities such as bathing, preparing meals, shopping, managing finances, etc.?: No Are you currently unemployed and looking for a job?: No Are you interested in more education?: No Please select the resources that you would like help with: None Currently or been in a relationship where the following occur: No concerns reported THRIVE Score: 0 AUDIT C Alcohol Use Questionnaire (AUDIT-C) 1. How often do you have a drink containing alcohol?: Monthly or less Total Score: 1 RONALD-7 AMB Questionnaire RONALD-7 Date RONALD - 7 assessed: 10/11/24 Feeling nervous, anxious, or on edge: 0 = Not at all Not being able to stop or control worryin = Not at all Worrying too much about different things: 0 = Not at all Trouble relaxin = Not at all Being so restless that it is hard to sit still: 0 = Not at all Becoming easily annoyed or irritable: 0 = Not at all Feeling afraid as if something awful might happen: 0 = Not at all Total RONALD-7 score (0-4 normal; 5-9 mild; 10-14 moderate; 15-21 severe): 0 Source: Developed by Drs. Mak Caballero, Sayra Bowles, Winston Mitchell and colleagues, with an educational vinicio from [employer]. RONALD-7 Assessment Billing RONALD-7 Assessment Tool: RONALD-7 Assessment 60789 Physical exam (Primary Care) Vital Signs: Last Vital Signs Temp 97.1 F 10/11/24 15:03 Pulse 77 10/11/24 15:03 Resp 12 10/11/24 15:03 BP 122/68 10/11/24 15:03 Pulse Ox 98 10/11/24 15:03 Oxygen Delivery Method Room Air 10/11/24 15:03 BMI result Body Mass Index 33.7 Tobacco/Smoking Status: Tobacco use Status Tobacco use date assessed 10/11/24 10/11/24 15:01 Patient Tobacco Use Status Never used Tobacco 10/11/24 15:01 e-Cigarette/Vaping Use Never Used 10/11/24 15:01 PHQ-9: PHQ-9 Score PHQ-9: Total score 3 10/11/24 15:44 Thrive Assessment: Date of Thrive Assessment Date Thrive assessed 10/11/24 10/11/24 15:01 Currently or been in a relationship where the following occur: No concerns reported Results AMB Urinalysis Dipstick UR Leukocytes Small Last Edit by Nadia Victor MA on 10/11/24 15:32 UR Nitrite Negative Last Edit by Nadia Victor MA on 10/11/24 15:32 UR Urobilinogen 12 Last Edit by Nadia Victor MA on 10/11/24 15:32 UR Protein 30 Last Edit by Nadia Victor MA on 10/11/24 15:32 UR Ph 6.0 Last Edit by Nadia Victor MA on 10/11/24 15:32 UR Blood Large Last Edit by Nadia Victor MA on 10/11/24 15:32 UR Specific [place] 1.015 Last Edit by Nadia Victor MA on 10/11/24 15:32 UR Ketone Trace Last Edit by Nadia Victor MA on 10/11/24 15:32 UR Bilirubin Negative Last Edit by Nadia Victor MA on 10/11/24 15:32 UR Glucose Negative Last Edit by Nadia Victor MA on 10/11/24 15:32 Results Reviewed Results Reviewed: Laboratory Last Values Urine pH (Clinic) 6.0 10/11/24 15:24 Specific [place] (Clinic) 1.015 10/11/24 15:24 Ur Protein (Clinic) 30 10/11/24 15:24 Ur Ketones (Clinic) Trace 10/11/24 15:24 Urine Blood (Clinic) Large 10/11/24 15:24 Urine Nitrite Negative 10/11/24 15:24 Urine Bilirubin (Clinic) Negative 10/11/24 15:24 Urobilinogen (Clinic) 12 10/11/24 15:24 Leukocyte Esterase (Clinic) Small 10/11/24 15:24 Urine Glucose (Clinic) Negative 10/11/24 15:24 Coding Level of Care Code Est Pt Level 4 (78627) Complex EM visit Add On G2211 Diagnoses Hematuria R31.9 Cervical radiculopathy M54.12 Additional Codes RONALD-7 Assessment Billing - RONALD-7 Assessment Tool: RONALD-7 Assessment 84907 ([id number]) PHQ-9 - 63237 - PHQ-9 Billing: Yes ([id number]) Assessment & Plan Assessment & Plan (1) Hematuria: Code(s): R31.9 - Hematuria, unspecified Category: Medical Plan: Urine dip positive for leuks and blood. We will treat patient empirically for UTI with a Macrobid 100 mg twice daily. Side effects and administration reviewed. Urinalysis and culture sent to lab. Check renal function. Stay well hydrated. Warning signs warranting ER evaluation reviewed. (2) Cervical radiculopathy: Code(s): M54.12 - Radiculopathy, cervical region Category: Medical Plan: Patient will have x-ray done that was ordered by her primary care physician. Previously evaluated by PCP. Plan Reviewed EGD report due to patient's concerns. She appears well today. No hematemesis or black tarry stools. Reassured patient that EGD did not say there was a perforation. We will check CBC to make sure there is no significant anemia, and she is waiting to hear back from her multiple resaw operator. She will continue pantoprazole 40 mg twice daily. Orders: Orders Urine Culture 10/11/24 R31.9 - Hematuria, unspecified, R39.9 - Unspecified symptoms and signs involving the genitourinary system Complete Blood Count Auto Diff 10/11/24 R31.9 - Hematuria, unspecified AMB Urinalysis Dipstick 10/11/24 R31.9 - Hematuria, unspecified, Z13.9 - Encounter for screening, unspecified UA w Microscopic 10/11/24 R31.9 - Hematuria, unspecified, R39.9 - Unspecified symptoms and signs involving the genitourinary system Basic Metabolic Panel 10/11/24 R31.9 - Hematuria, unspecified Medications: New nitrofurantoin macrocrystal must administer with a meal/food 100 mg PO Q12H 14 caps 0RF
[2024-10-11 15:03] VITALS: BP 122/68; PULSE 77; RESP 12; TEMP 36.2; O2SAT 98; BMI 33.7
--- OUTSIDE RECORDS SUMMARY | 2024-10-11 18:36 | XMS_ITS | Encounter Summary ---
Author Organization [employer] (Inspect Manager) Address [address] [facility] [address] [place] [address] Care Team Providers Care Medical Specialist Name Role Phone Unavailable Primary Care Provider Unavailabl e Encounter Details Date Type Department Care Team (Late Contact Info) Description 10/09/2024 Telephone [facility] ADULT DENTAL [address] [place] [address] Susanna Handy DDS [address] [place], [place] [phone] Social History Tobacco Use Types Packs/Day Years Used Date Smoking Tobacco: Never Smokeless Tobacco: Never Comments Unknown Sex and Gender Information Value Date Recorded Sex Assigned at Female 10/19/2023 8:30 AM EDT Legal Sex Female 8:29 AM EDT Gender Identity Female 10/19/2023 8:30 AM EDT Sexual Orientation Don't know 10/25/2023 3: 11 PM EDT documented as of this encounter Miscellaneous Notes * Telephone Encounter - Milka Raymundo - 10/09/2024 3:20 PM EDT Lvm regarding insurance. Spoke with bilingual inside sales representative who stated that patient does not have any dentalcoverage on this plan. I asked if they can make sure that there is no dental benefits and the bilingual inside sales representative did not find anything. Reference #: [id number] Maddie informed me that we have been receiving payments from the insurance and when I called back, the bilingual inside sales representative still could not find any dental benefits and says that if this is reported the patient would be responsible for any payments. documented in this encounter Plan of Treatment Upcoming Encounters Date Type Department Care Team ([facility] Contact Info) Description 10/25/2024 11:00 AM EDT Office Visit [facility] ADULT DENTAL [address] [place] [address] Susanna Handy, DDS [address] [place], [place] [phone] documented as of this encounter Visit Diagnoses Not on filedocumented in this encounter
--- OUTSIDE RECORDS SUMMARY | 2024-10-11 18:36 | XMS_ITS | Encounter Summary ---
Author Organization [employer] Address [address] [facility] [address]t [place] [address] Care Team Providers Care Food Service Worker Hospital Name Role Phone Unavailable Primary Care Provider Unavailabl e Reason for Visit * Reason Comments Filling Encounter Details Date Type Department Care Team (Late st Contact Info) Description 09/14/2024 2:30 PM EST Office Visit [facility] ADULT DENTAL [address] [place] [address] Susanna Shaw DDS [address] [place] [address] Social History Tobacco Use Types Packs/Day Years Used Date Smoking Tobacco: Never Smokeless Tobacco: Never Comments Unknown Sex and Gender Information Value Date Recorded Sex Assigned at Female 10/19/2023 8:30 AM EDT Legal Sex Female 8:29 AM EDT Gender Identity Female 10/19/2023 8:30 AM EDT Sexual Orientation Don't know 10/25/2023 3: 11 PM EDT documented as of this encounter Progress Notes * Susanna Shaw DDS - 09/14/2024 2:30 PM EST Dental procedures in this visit [id number] - RESIN-BASED COMPOSITE - 2 SURF, POSTERIOR 18 DO (Completed) Service provider: Susanna Shaw DDS Billing provider: Janeth Ocampo DDS Patient ID: Doc Najera is a 68 y.o. female. Time Out: Date: 09/14/2024 Location: [facility] Tooth: #18 Procedure: Gnosticism Verified the above with patient, human resource assistant, and provider. Confirmed via patient's chart, intraorally and by radiographs. Sueding And Buffing Machine Operator: not applicable Composite sabianism done on # [address] Susanna Shaw DDS Risk, benefits, and alternatives discussed with the patient. CONSENT FORM INITIALED & SIGNED BY THE PATIENT AND COUNTERSIGNED BY Dr. Susanna Shaw DDS Medical history: Reviewed in EHR Vitals: There were no vitals taken for this visit. Allergies: Reviewed in EHR Medications: Reviewed in EHR - LA: 20% topical benzocaine; local infiltration with 1 carpule 4% septocaine/articaine 1:100,000 epinephrine - Existing sabianism and recurrent decay removed - Matrix band and wedge used as needed - Desensitizer: gluma - Base: mekoryuk-lite - Etching done using 37% phosphoric acid. - cargo operations agent applied. - Composite sabianism done using Filtek body/flowable composite, shade a3 - Anatomy and margins adjusted - Proximal contact confirmed with floss. - Occlusion checked with articulating paper - Necessary reductions made. - Gnosticism smoothed and polished. - Post op instructions given Patient satisfied, left in stable condition Patient made aware possible post op sensitivity NV: recall Provider: Dr. Susanna Shaw DDS Ore Smelter: Martin Stephen Supervising dentist: Dr. Ocampo * Janeth Ocampo DDS - 09/14/2024 2:30 PM EST I have reviewed the documentation and dental procedures completed by the rendering provider, Susanna Shaw DDS, and approve their chart entries for this visit. MIRANDA Gant DDS documented in this encounter Miscellaneous Notes * Addendum Note - Susanna Shaw DDS - 09/14/2024 2:30 PM ESTAddended by: SUSANNA SHAW on: 09/18/2024 02:51 PM Modules accepted: Orders documented in this encounter Plan of Treatment Upcoming Encounters Date Type Department Care Team (Late st Contact Info) Description 10/25/2024 11:00 AM EDT Office Visit [facility] ADULT DENTAL [address] [place], [place] [phone] Susanna Shaw DDS [address] [place] [address] Scheduled Orders Name Type Priority Associated Diagnoses Orde r Schedule DENTAL LAB DENTURES AND PARTIALS Dental Routine Ordered: 025 documented as of this encounter Procedures Procedure Name Priority Date/Time Associated Diagnosis Comments 18 DO RESIN-BASED COMPOSITE - 2 SURF, POSTERIOR Routine 09/14/2024 2:30 PM EST documented in this encounter Visit Diagnoses Not on filedocumented in this encounter
--- OUTSIDE RECORDS SUMMARY | 2024-10-11 18:36 | XMS_ITS | Encounter Summary ---
Author Organization [employer] Address [address] [facility] [address]t [place] [address] Care Team Providers Care Fork Lift Technician Name Role Phone Unavailable Primary Care Provider Unavailabl e Encounter Details Date Type Department Care Team (Late st Contact Info) Description 03/06/2024 Telephone [facility] [address] [place], [place] [phone] Susanna Handy DDS [address] [place], [place] [phone] Social History Tobacco Use Types Packs/Day Years Used Date Smoking Tobacco: Never Assessed Comments Unknown Sex and Gender Information Value Date Recorded Sex Assigned at Female 10/19/2023 8:30 AM EDT Legal Sex Female 8:29 AM EDT Gender Identity Female 10/19/2023 8:30 AM EDT Sexual Orientation Don't know 10/25/2023 3: 11 PM EDT documented as of this encounter Miscellaneous Notes * Telephone Encounter - Cherelle Choudhury - 03/06/2024 8:23 AM EDT Patient is coming in for emergency pain today. Patient has been informed that [employer] dental insurance is out of network in our office an will therefore pay less than if patient goes to an office whereit is in network. Patient also applied for SFS which she was approved for level 3 but at the time she did not know that she had [employer] insurance. Upon speaking with Caitlyn, it was confirmed that he SFS would cover a portion of the difference that the patient would hve to pay out of pocket. Patient is aware that if she does not have anything to pay today, we do not turn emergencies away but no other appts can be scheduled until the balance is paid. She also was inquiring about implants as she states she was told that the SFS would cover such treatment. The patient has never been here before. It was explained to patient that today's emergency appt covers the emergency and nothing else so she would not be receiving a implant evaluation. It was also explained to patient that the implant program is not a regular offer, that not everyone qualifies and that the patient must be a regular patient or be referred and be on a waiting list to be seen and theere is no guarantee that she would qualify as it is not regular service. It is a service run through the residency program. Patient understood. Called front desk host and spoke with Genna and provided a run through of our conversation DR documented in this encounter Plan of Treatment Upcoming Encounters Date Type Department Care Team (Late st Contact Info) Description 10/25/2024 11:00 AM EDT Office Visit [facility] [address] [place] [address] Susanna Handy DDS [address] [place] [address] documented as of this encounter Visit Diagnoses Not on filedocumented in this encounter
--- OUTSIDE RECORDS SUMMARY | 2024-10-11 18:36 | XMS_ITS | Encounter Summary ---
Author Organization [employer] Address [address] [facility] [address] [place] [address] Care Team Providers Care Mixing Machine Tender Cork Rod Name Role Phone Unavailable Primary Care Provider Unavailabl e Reason for Visit * Reason Comments Dentures Encounter Details Date Type Department Care Team (Late st Contact Info) Description 10/09/2024 1:30 PM EDT Office Visit [facility] ADULT D[facility] [address] [place] [address] Susanna Handy DDS [address] [place] [address] Social History Tobacco Use Types Packs/Day Years Used Date Smoking Tobacco: Never Smokeless Tobacco: Never Comments Unknown Sex and Gender Information Value Date Recorded Sex Assigned at Female 10/19/2023 8:30 AM EDT Legal Sex Female 8:29 AM EDT Gender Identity Female 10/19/2023 8:30 AM EDT Sexual Orientation Don't know 10/25/2023 3: 11 PM EDT documented as of this encounter Progress Notes * Susanna Handy DDS - 10/09/2024 1:30 PM EDT Dental procedures in this visit D5110 - WAX TRY IN (Completed) Service provider: Susanna Handy DDS Billing provider: Janeth Ocampo DDS Patient ID: Doc Najera is a 68 y.o. female. Time Out: Date: 10/09/2024 Location: [facility] Tooth: Maxilla and Mandible Procedure: Dentures Verified the above with patient, recovery assistant, and provider. Confirmed via patient's chart, intraorally and by radiographs. Associate Publisher: not applicable Wax try in done by Dr. Susanna Handy DDS for upper and lower acrylic complete/partial denture Risk, benefits, and alternatives discussed with the patient. CONSENT FORM INITIALED & SIGNED BY THE PATIENT AND COUNTER SIGNED BY DR. Susanna Handy DDS Medical history: Reviewed in EHR Vitals: There were no vitals taken for this visit. Allergies: Reviewed in EHR Medications: Reviewed in EHR - Upper and lower partial denture try-in done. - Esthetics and phonetics approved by patient and provider. - Occlusion confirmed using articulating paper. - Case to be sent to: [facility] for Final fabrication Patient accepts all aspects of prosthesis and consents to proceed with final processing. Patient released in stable condition. Patient satisfied. NV: Insertion Provider: Dr. Susanna Handy DDS Metal Drill Operator: Martin Stephen Supervising Dentist: Dr. Ocampo * Janeth Ocampo DDS - 10/09/2024 1:30 PM EDT I have reviewed the documentation and dental procedures completed by the rendering provider, Susanna Handy DDS, and approve their chart entries for this visit. MIRANDA Gant DDS documented in this encounter Plan of Treatment Upcoming Encounters Date Type Department Care Team (Late st Contact Info) Description 10/25/2024 11:00 AM EDT Office Visit [facility] ADULT DENTAL [address] [place] [address] Susanna Handy DDS [address] [place] [address] Scheduled Orders Name Type Priority Associated Diagnoses Orde r Schedule DENTAL LAB DENTURES AND PARTIALS Dental Routine Ordered: 025 documented as of this encounter Procedures Procedure Name Priority Date/Time Associated Diagnosis Comments WAX TRY IN Routine 10/09/2024 1:30 PM EDT documented in this encounter Visit Diagnoses Not on filedocumented in this encounter
--- OUTSIDE RECORDS SUMMARY | 2024-10-11 18:36 | XMS_ITS | Encounter Summary ---
Author Organization [employer] Address [address] [facility] 7t [place] [address] Care Team Providers Care Rn Manager Name Role Phone Unavailable Primary Care Provider Unavailabl e Reason for Visit * Reason Comments Dentures Encounter Details Date Type Department Care Team (Late st Contact Info) Description 09/28/2024 8:00 AM EDT Office Visit [facility] ADULT D[facility] [address] [place] [address] Susanna Handy DDS [address] [place] [address] Social History Tobacco Use Types Packs/Day Years [...] Progress Notes * Susanna Handy DDS - 09/28/2024 8:00 AM EDT Dental procedures in this visit D5110 - BITE REGISTRATION (Completed) Service provider: Susanna Handy DDS Billing provider: Rober Laws DMD Patient ID: Doc Najera is a 68 y.o. female. Time Out: Date: 09/28/2024 Location: [facility] Tooth: Maxilla and Mandible Procedure: Dentures Verified the above with patient, orthotic assistant, and provider. Confirmed via patient's chart, intraorally and by radiographs. Gis Software Developer: not applicable Upper and Lower arch bite registration done by Dr. Susanna Handy DDS for upper and lower acrylic partial denture. Medical history: Reviewed in EHR Vitals: There were no vitals taken for this visit. Allergies: Reviewed in EHR Medications: Reviewed in EHR - Upper and lower bite registration done on wax rims. - Shade selected (with patient's choice): C2 - Teeth requested: Trubyte - Case to be sent to: [facility]. - Case asked to be back on: 10/05/2024 Patient satisfied, left in stable condition NV: Try in teeth set in wax Provider: Dr. Susanna Handy DDS Dental Secretary: Martin Stephen Supervising dentist: Dr. Laws * Rober Laws DMD - 09/28/2024 8:00 AM EDT I have reviewed the documentation and dental procedures made by the rendering provider, Susanna Handy DDS, and approve their chart entries for this visit. Rober Laws DMD documented in this encounter Plan of Treatment Upcoming Encounters Date Type Department Care Team (Late st Contact Info) Description 10/25/2024 11:00 AM EDT Office Visit [facility] ADULT DENTAL [address] [place] [address] Susanna Handy DDS [address] [place] [address] Scheduled Orders Name Type Priority Associated Diagnoses Orde r Schedule DENTAL LAB DENTURES AND PARTIALS Dental Routine Ordered: 025 documented as of this encounter Procedures Procedure Name Priority Date/Time Associated Diagnosis Comments BITE REGISTRATION Routine 09/28/2024 8:00 AM EDT documented in this encounter Visit Diagnoses Not on filedocumented in this encounter
--- OUTSIDE RECORDS SUMMARY | 2024-10-11 18:37 | XMS_ITS | Clinical Summary ---
Author Organization [employer] Address [address] [facility] [address] [place] [address] Care Team Providers Care Flow Coordinator Name Role Phone Unavailable Primary Care Provider Unavailabl e Allergies No known active allergies Medications folic acid (Folvite) 1 MG tablet Take by mouth Once per day. Active amphetamine-dext roamphetamine (Adderall) 30 MG tablet Take 30 mg by mouth Once per day. Active etanercept (Enbrel) 50 MG/ML injection Inject under the skin. Active venlafaxine XR (Effexor XR) 150 MG 24 hr capsule Take 150 mg by mouth Once per day. Do not crush or chew. Active pravastatin (Pravachol) 20 MG tablet Take by mouth. Active fluvastatin (Lescol) 40 MG capsule 04/20/2024 Active Active Problems No known active problems Encounters Date Type Department Care Team Description 10/09/2024 1:30 PM EDT Office Visit [facility] ADULT DENTAL [address] [place] [address] Susanna Handy, DDS 10/09/2024 Telephone [facility] ADULT DENTAL [address] [place] [address] Susanna Handy, DDS 09/28/2024 8:00 AM EDT Office Visit [facility] ADULT DENTAL [address] [place] [address] Susanna Handy, DDS 09/14/2024 2:30 PM EST Office Visit [facility] ADULT DENTAL [address] [place] [address] Susanna Handy, DDS 08/30/2024 2:30 PM EST Office Visit [facility] ADULT DENTAL [address] [place] [address] Susanna Handy, DDS 07/24/2024 10:00 AM EST Office Visit [facility] ADULT DENTAL [address] [place] [address] Susanna Handy DDS from Last 3 Months Social History Tobacco Use Types Packs/Day Years Used Date Smoking Tobacco: Never Smokeless Tobacco: Never Tobacco Cessation:Counseling Given: Not Answered Comments Unknown Sex and Gender Information Value Date Recorded Sex Assigned at Female 10/19/2023 8:30 AM EDT Legal Sex Female 8:29 AM EDT Gender Identity Female 10/19/2023 8:30 AM EDT Sexual Orientation Don't know 10/25/2023 3: 11 PM EDT Last Filed Vital Signs Vital Sign Reading Time Taken Comments Blood Pressure 128/84 07/24/2024 10:13 AM EST Pulse 60 04/24/2024 10:22 AM EDT Temperature - - Respiratory Rate - - Oxygen Saturation - - Inhaled Oxygen Concentration - - Weight - - Height - - Body Mass Index - - Plan of Treatment Upcoming Encounters Date Type Department Care Team (Late st Contact Info) Description 10/25/2024 11:00 AM EDT Office Visit [facility] ADULT DENTAL [address] [place] [address] Susanna Handy DDS [address] [place] [address] Health Maintenance Due Date Last Done Comments CT Colonography 1954 Colonoscopy 1954 Colorectal Cancer Screening 1954 Depression Screening 1954 FIT DNA/Cologuard 1954 FIT 1954 FOBT 1954 SDOH Screening 1954 Sigmoidoscopy 1954 Alcohol/Substance Use Screening 1966 Hepatitis C Screening 1972 DTaP/Tdap/Td Vaccines (1 - Tdap) 1973 Mammogram 1994 Pneumococcal Vaccine: 50+ Years (1 of 1 - PCV) 2004 Zoster Vaccines (1 of 2) 2004 COVID-19 Vaccine (1 - 2023-2 5 season) 2024 Influenza Vaccine (#1) 2024 Dental Oral Exam 10/24/2024 04/24/2024 Dental Prophylaxis 10/24/2024 04/24/2024 Dental X-Ray: Bitewings 04/25/2025 04/24/20 24, 03/06/2024 Tobacco Screening 10/09/2025 10/09/2024 Dental X-Ray: Full Mouth 04/25/2027 024, 03/28/2024 RSV Patients and Patients Aged 60 years or older (1 - 1-dose 75+ series) 2029 HIB Vaccines Aged Out No longer eligi ble based on patient's age to complete this topic HPV Vaccines Aged Out No longer eligi ble based on patient's age to complete this topic Hepatitis A Vaccines Aged Out No long er eligible based on patient's age to complete this topic Hepatitis B Vaccines Aged Out No long er eligible based on patient's age to complete this topic IPV Vaccines Aged Out No longer eligi ble based on patient's age to complete this topic Meningococcal Vaccine Aged Out No kenny zuleyka eligible based on patient's age to complete this topic RSV under 20 months Aged Out No longe r eligible based on patient's age to complete this topic Rotavirus Vaccines Aged Out No longer eligible based on patient's age to complete this topic Procedures Procedure Name Priority Date/Time Associated Diagnosis Comments WAX TRY IN Routine 10/09/2024 1:30 PM EDT BITE REGISTRATION Routine 09/28/2024 8:0 0 AM EDT 18 DO RESIN-BASED COMPOSITE - 2 SURF, POSTERIOR Routine 09/14/2024 2:30 PM EST DENTURE IMPRESSION Routine 08/30/2024 2: 30 PM EST 22 F(V) RESIN-BASED COMPOSITE - 1 SURF, ANTERIOR Routine 07/24/2024 10:00 AM EST 21 B(V) RESIN-BASED COMPOSITE - 1 SURF, POSTERIOR Routine 07/24/2024 10:00 AM EST 28 B(V) RESIN-BASED COMPOSITE - 1 SURF, POSTERIOR Routine 07/24/2024 10:00 AM EST PROPHYLAXIS - ADULT Routine 04/24/2024 1 0:00 AM EDT INTRAORAL - COMPLETE SERIES OF RADIOGRAPHIC IMAGES Routine 04/24/2024 10:00 AM EDT COMPREHENSIVE ORAL EVALUATION - NEW OR ESTABLISHED PATIENT Routine 04/24/2024 10:00 AM EDT from Last 3 Months or Most Recently Relevant to Health Maintenance Insurance DENTAL - [employer] DENTAL
== END 2024-10-11 15:46 | disposition home or self-care (01) ==
LOC: HO.HMCFM 14:58
PROVIDERS: PCP Internal Medicine; Visit Provider Physician Assistant Medical
DX: Z13.9 Encounter for screening, unspecified (principal); R31.9 Hematuria, unspecified

== ENCOUNTER → 2024-10-11 14:57 | Outpatient (BNVA) | payer MEDICARE, SELFPAY | PROVIDERS: PCP Internal Medicine; Visit Provider Physician Assistant Medical | DX: R31.9 Hematuria, unspecified (principal); R39.9 Unspecified symptoms and signs involving the genitourinary system; M54.12 Radiculopathy, cervical region | CPT/HCPCS: 81002 ==

== ENCOUNTER 2024-10-11 15:47 | Outpatient (REF) | payer MEDICARE, SELFPAY ==
[2024-10-11 17:58] LABS: MANUAL DIFF FLAG NO
[2024-10-11 18:04] LABS: Basophils Percent Auto 0.4 % (0-2); Eosinophils Absolute Auto 0.3 X10*3/uL (0.0-0.4); Eosinophils Percent Auto 5.1 % (0-4); Imm Gran Abs Auto 0.02 X10*3/uL (0.00-0.03); Imm Gran Pct Auto 0.4 % (0.0-0.4); Lymphocytes Absolute Auto 1.3 X10*3/uL (1.2-4.9); Lymphocytes Percent Auto 24.8 % (20-40); Mean Corpuscular Hemoglobin 31.2 pg (27.0-33.0); Mean Corpuscular Volume 89.1 fL (80.0-98.0); Mean Platelet Volume 8.6 fL (9.4-12.3); Monocytes Absolute Auto 0.6 X10*3/uL (0.1-1.2); Monocytes Percent Auto 11.1 % (2-11); Neutrophils Absolute Auto 2.9 x10*3/uL (2.0-8.3); Neutrophils Percent Auto 58.2 % (45-73); Platelet Count 245 X10*3/uL (160-400); Red Blood Count 4.49 X10*6/uL (4.20-5.50); Red Cell Distribution Width 12.7 % (11.0-16.0); White Blood Count 5.1 X10*3/uL (4.8-10.8)
[2024-10-11 18:14] LABS: Bacteria Urine None Seen (None Seen); Hyaline Casts Urine 0-2 /LPF (0-2); RBC Urine >20 /HPF (0-2)
[2024-10-11 18:17] LABS: Anion Gap 11 (12-20); Blood Urea Nitrogen 12 mg/dL (9-16); Calcium 9.3 mg/dL (8.4-10.2); Carbon Dioxide 26 mmol/L (22-29); Chloride 103 mmol/L (96-108); Estimated Glomerular Filt Rate > 60; Glucose Random 92 mg/dL (60-115); Sodium 136 mmol/L (135-145)
[2024-10-11 18:17] LABS: Appearance Urine Cloudy; Color Urine Orange; Glucose Urine UA Negative (Negative); Leukocyte Esterase Urine Small (1+) (Negative); Nitrite Urine Negative (Negative); Specific Gravity - Urine 1.015 (1.005-1.025); UMIC TRIGGER UA YES; Urine Blood Large (3+) (Negative); Urine Ketones Trace mg/dL (Negative); Urine Protein 30 (1+) mg/dL (Neg-Trace)
== END 2024-10-11 15:48 | disposition home or self-care (01) ==
LOC: HO.WFDLDS 15:47
PROVIDERS: Visit Provider Physician Assistant Medical
DX: R31.9 Hematuria, unspecified (principal); R39.9 Unspecified symptoms and signs involving the genitourinary system; M54.12 Radiculopathy, cervical region
CPT/HCPCS: 36415; 80048; 81001; 81002; 85025; 87086; 96127; 99212

== ENCOUNTER 2024-10-12 13:23 | Outpatient (REF) | payer MEDICARE, SELFPAY ==
--- NOTE | ~2024-10-12 | XR_ITS ---
EXAMINATION: XR CERVICAL SPINE CLINICAL INFORMATION: M54.2 - Cervicalgia COMPARISON: None available. TECHNIQUE: 5 views of the cervical spine, inclusive of bilateral oblique views, were obtained. FINDINGS: Mild reversal of the normal lordosis centered at C5. Trace levoconvex scoliosis, possibly positional. No fracture, compression deformity, or suspicious bone lesion. C1-2 articulation and craniocervical junction are intact and aligned. There is a 3 mm degenerative anterolisthesis of C4 on C5. There is minimal degenerative retrolistheses C5 on C6 and C6 on C7. Normal facet alignment. There are hypertrophic degenerative facet changes most notable on the left at C3-4 and C4-5. Severe disc space degeneration present C4-5, C5-6, and C6-7. Oblique views demonstrate moderate bony neural foraminal narrowing on the right at C4-5, and mild at C5-6 and C6-7. On the left, there is severe bony neural foraminal narrowing at C3-4, C4-5, and C5-6. There is mild narrowing at C6-7. The pre and paravertebral soft tissues are normal. The lung apices are clear. XR/XR cervical spine 4V IMPRESSION: 1. No acute bony abnormalities. 2. Moderate cervical spondylosis most significant C4-C7. See above for details. Electronically signed by: Fuad Orosco MD 10/12/2024 01:45 PM EDT
== END 2024-10-12 13:24 | disposition home or self-care (01) ==
LOC: HO.XRAY 13:23
PROVIDERS: PCP Internal Medicine; Visit Provider Internal Medicine
DX: M54.2 Cervicalgia (principal); M54.12 Radiculopathy, cervical region
CPT/HCPCS: 72050

== ENCOUNTER → 2024-10-12 13:26 | Outpatient (BNV) | payer MEDICARE, SELFPAY | PROVIDERS: PCP Internal Medicine; Visit Provider Radiology Diagnostic Radiology | DX: M54.2 Cervicalgia (principal) | CPT/HCPCS: 72050 ==

== ENCOUNTER 2024-12-27 07:38 | Day surgery (SDC) | payer MEDICARE, SELFPAY ==
--- OUTSIDE RECORDS SUMMARY | 2024-11-27 06:48 | XMS_ITS | Clinical Summary ---
Author Organization [employer] Address [address] [facility] 7t [place] [address] Care Team Providers Care Glass Scullion Name Role Phone Unavailable Primary Care Provider [...] Description 10/09/2024 1:30 PM EDT Office Visit [facility] [address] [place] [address] Susanna Handy, ECTORS 10/09/2024 Telephone [facility] [address] [place] [address] Susanna Handy, DDS 09/28/2024 8:00 AM EDT Office Visit [facility] [address] [place] [address] Susanna Handy, DDS 09/14/2024 2:30 PM EST Office Visit [facility] [address] [place] [address] Susanna Handy, ECTORS 08/30/2024 2:30 PM EST Office Visit [facility] [address] [place] [address] Susanna Handy DDS from Last 3 Months [...] Mass Index - - Plan of Treatment Health Maintenance Due Date Last Done Comments CT Colonography 1954 Colonoscopy 1954 Colorectal Cancer Screening 1954 Depression Screening 1954 FIT DNA/Cologuard 1954 FIT 1954 FOBT 1954 SDOH Screening 1954 Sigmoidoscopy 1954 Alcohol/Substance Use Screening 1966 Hepatitis C Screening 1972 Mammogram 1994 Zoster Vaccines (2 of 2) 10/02/2019 08/07/2019 Pneumococcal Vaccine: 50+ Years (3 of 3 - PCV20 or PCV21) 12/28/2023 12/27/2018, 06/13/2018 COVID-19 Vaccine (2 - season) 2024 09/18/2020 Influenza Vaccine (#1) 2024 , 05/01/2020, 04/18/2019, Additional history exists DTaP/Tdap/Td Vaccines (3 - Td or Tdap) 09/16/2024 09/16/2014, 06/19/2008 Dental Oral Exam 10/24/2024 04/24/2024 Dental Prophylaxis 10/24/2024 04/24/2024 Dental X-Ray: Bitewings 04/25/2025 04/24/2024, 03/06 Tobacco Screening 10/09/2025 10/09/2024 Dental X-Ray: Full Mouth 04/25/2027 04/24/2024, 03/18 RSV Patients and Patients Aged 60 years [...] IMPRESSION Routine 08/30/2024 2: 30 PM EST PROPHYLAXIS - ADULT Routine 04/24/2024 1 0:00 AM EDT INTRAORAL - COMPLETE SERIES OF RADIOGRAPHIC IMAGES Routine 04/24/2024 10:00 AM EDT COMPREHENSIVE ORAL EVALUATION - NEW OR ESTABLISHED PATIENT Routine 04/24/2024 10:00 AM EDT from Last 3 Months or Most Recently Relevant to Health Maintenance Insurance DENTAL - [employer] DENTAL # [address] [place] [address]
--- OUTSIDE RECORDS SUMMARY | 2024-11-27 06:48 | XMS_ITS | Encounter Summary ---
Author Organization [employer] Address [address] [facility] 7t [place] [address] Care Team Providers Care Pipeline Construction Inspector Name Role Phone Unavailable Primary Care Provider Unavailabl e Encounter Details Date Type Department Care Team (Late st Contact Info) Description 03/06/2024 Telephone [facility] ADULT DENTAL [address] [place], [place] [phone] Susanna Handy DDS [address] [place], [place] [phone] Social History Tobacco Use Types Packs/Day Years [...] through the residency program. Patient understood. Called computer help desk specialist and spoke with Genna and provided a run through of our conversation DR documented in this encounter Plan of Treatment Not on file documented as of this encounter Visit Diagnoses Not on filedocumented in this encounter
[2024-12-25 13:34] VITALS: BMI 33.8
--- NOTE | 2024-12-26 09:15 | P.CONAN_ITS ---
Documented by User: Any Lanier NP 12/26/24 09:19 HPI - Anesthesia Eval Consult details Narrative: 69yo F for Upper Endoscopy with Dilitation s/p EGD and Vance 09/2024 with TIVA PMFSH Active Problems Active Problems: All Active Problems Encounter for annual wellness visit (AWV) in Medicare patient (Acute) Hematuria (Acute) Cervical radiculopathy (Acute) Neck pain (Acute) Transaminitis (Acute) Viral upper respiratory illness (Acute) Screening for skin cancer (Acute) Depression (Acute) Psoriatic arthritis (Acute) Snoring (Acute) Fatigue (Acute) Past Medical History Medical History Hematuria Dysphagia Transaminitis Tubular adenoma History of mammogram Psoriatic arthritis Osteoporosis High cholesterol Depression Arthritis ADD (attention deficit disorder) Family History Family History Mother Pneumonia Breast cancer Father Asbestos exposure Lung cancer Colon cancer Sister Dysphagia High cholesterol Brother High cholesterol Obesity Brother Dysphagia Heart disease Brother Heart attack Kidney disease Family history of problems with anesthesia: No Surgical History Surgical History Hx of varicose vein ligation History of colonoscopy History of Problems with Anesthesia: No Social History Social History Household Members: Spouse Housing: House Are you a primary intensive care unit nurse to a significant other at home: No Do you presently have visiting nurse or other home services: No Alcohol intake: never Patient Tobacco Use Status: Never used Tobacco e-Cigarette/Vaping Use: Never Used Use of substances other than those prescribed or required for medical reasons: No Have you been hit, kicked, punched, or otherwise hurt by someone within the past year? If so, by whom?: No Are you DNR?: No Advance Directives: No Advance Directives Information Provided: Yes Patient : No Poor oral hygiene: No service: No Current occupational status: retired Cognitive needs: No Hearing needs: No Vision needs: No Meds Allergies Allergy/AdvReac Type Severity Reaction Status Date / Time No Known Allergies Allergy Verified 12/27/24 08:17 Home Medications ?Medication ?Instructions ?Recorded ?Confirmed ?Last Taken ?Type etanercept 50 mg/mL (1 mL) 50 mg subcut QWEEK 03/30/24 12/25/24 Unknown History subcutaneous cartridge (Enbrel Mini) Exam Height,Weight and Vital Signs: Height 5 ft 3 in Weight 86.636 kg Assessment and Plan Assessment Anesthesia Assessment: Chart Reviewed Final Anesthetic Review Family History of Problems with Anesthesia: No History of Problems with Anesthesia: No Documented by User: Natacha Mae MD 12/27/24 08:49 [facility] Past Medical History Medical History Hematuria Dysphagia Transaminitis Tubular adenoma History of mammogram Psoriatic arthritis Osteoporosis High cholesterol Depression Arthritis ADD (attention deficit disorder) Family History Family History Mother Pneumonia Breast cancer Father Asbestos exposure Lung cancer Colon cancer Sister Dysphagia High cholesterol Brother High cholesterol Obesity Brother Dysphagia Heart disease Brother Heart attack Kidney disease Surgical History Surgical History Hx of varicose vein ligation History of colonoscopy Social History Social History Household Members: Spouse Housing: House Are you a primary intensive care unit nurse to a significant other at home: No Do you presently have visiting nurse or other home services: No Alcohol intake: never Patient Tobacco Use Status: Never used Tobacco e-Cigarette/Vaping Use: Never Used Use of substances other than those prescribed or required for medical reasons: No Have you been hit, kicked, punched, or otherwise hurt by someone within the past year? If so, by whom?: No Are you DNR?: No Advance Directives: No Advance Directives Information Provided: Yes Patient : No Poor oral hygiene: No service: No Current occupational status: retired Cognitive needs: No Hearing needs: No Vision needs: No Meds Allergies Allergy/AdvReac Type Severity Reaction Status Date / Time No Known Allergies Allergy Verified 12/27/24 08:17 Home Medications ?Medication ?Instructions ?Recorded ?Confirmed ?Last Taken ?Type etanercept 50 mg/mL (1 mL) 50 mg subcut QWEEK 03/30/24 12/25/24 Unknown History subcutaneous cartridge (Enbrel Mini) Exam Airway Mallampati Class: II TM Dist: >3cm Neck ROM: Full Loose/Missing/Broken Teeth: No Heart: RRR Lungs: CTA Assessment and Plan Assessment Anesthesia Assessment: Anesthesia Plan Discussed Final Anesthetic Review NPO: Yes ASA Class: II Final Preanesthetic Review: Meds/Allgs Chart Reviewed, Consent Obtained/Reviewed and Anes Risks/Benef Reviewed Patient Risk: Low Procedure Risk: Intermediate Anesthetic Plan Anesthetic Plan: MAC: Disposition: Standard PACU
--- NOTE | 2024-12-27 07:56 | MHC.SHP ---
Pre-Procedural Eval Section A - 24 Hr Update-Section A only Date of Service: 12/27/24 Section B - Complete if H&P > 30 days Chief Complaint: Dysphagia Details of Present Illness: Dysphagia Transaminitis Tubular adenoma History of mammogram Psoriatic arthritis Osteoporosis High cholesterol Depression Arthritis ADD (attention deficit disorder) Surgical History (Updated 05/22/24 @ 15:30 by Abigail Segal [facility]-) Hx of varicose vein ligation History of colonoscopy Present Medications: see Short Stay Collaborative assessment Allergies: Allergies Allergy/AdvReac Type Severity Reaction Status Date / Time No Known Allergies Allergy Verified 10/11/24 14:59 Review of Systems Review of Systems Comment: 10 point ROS negative Exam Exam Comment: Gen appear: No acute distress HEENT: no icterus Chest: No overt resp distress Abd: soft, nontender, nondistended Psych: Stable affect, answering questions appropriately Neuro: A/Ox3 noted to move all extremities spontaneously Ext: no peripheral edema Plan Diagnosis/Plan: Unchanged I have reviewed the history and physical and performed a pertinent physical examination on my patient. No changes have occurred unless specified. Time Spent With Patient Time: Total time managing care of this patient today ____ minutes.
[2024-12-27 08:17] VITALS: BMI 31.4
[2024-12-27 08:36] VITALS: BP 112/58; PULSE 76; RESP 14; TEMP 36.6; O2SAT 97
[2024-12-27] MEDS: Lactated Ringers 1,000 ML 100 ML IVCONT (08:37)
--- NOTE | 2024-12-27 09:58 | P.OP_ITS ---
Operative Note Operative Note Date of Service: 12/27/24 Narrative: Procedure: Esophagogastroduodenoscopy Endoscopist: Maine Miranda MD Indication: Esophagatis, dysphagia Anesthesia Provider: Anthony Adams CRNA Anesthesia Type: MAC ?? EGD Procedure:?? The procedure, indications, preparation and potential complications were reviewed with the patient, who indicated understanding and gave written informed consent to proceed. A physical exam was performed. The endoscope was introduced through the mouth, and advanced to the second part of duodenum. The mucosa was carefully examined on slow withdrawal of the endoscope. The patient tolerated the procedure well. There were no immediate complications.? ? EGD Findings:? * Esophagus:? Small erosions measuring less than 5 mm noted at the GE junction. The Z line was at 35 cm displaced upwards by a hiatal hernia with the diaphragmatic pinch at 39 cm. * Stomach:? Large amount of solid food noted in the stomach precluding most of the visualization in the body and fundus. The antrum appeared normal. Retroflexion in the cardia showed Hill grade 3 hiatal hernia. * Duodenum:? Normal mucosa was noted in the whole of the examined duodenum. Additional intervention: Soft tip Savary wire was introduced through the biopsy channel of the gastroscope and advanced to the antrum. ?The gastroscope was then backed out. ?Savary Dre bougie was advanced over the guidewire and the esophagus was dilated to 18 mm with resistance felt. ?On relook, superficial heme was noted confirming successful dilation at the level of cricopharyngeus. ? ? EGD Impressions:? * Cricopharyngeal stenosis (dilation) * Grade A esophagitis * Hiatal hernia * Food in stomach * Normal duodenum ?? Recommendations:?? * Continue PPI therapy. * Avoid NSAIDs, smoking and etOH * Can repeat EGD with dilation as needed for recurrence of symptoms Above has been reviewed with the patient.
[2024-12-27 10:04] VITALS: BP 95/52; PULSE 73; RESP 16; TEMP 36.1; O2SAT 96
[2024-12-27 10:19] VITALS: BP 111/58; PULSE 68; RESP 20; TEMP 36.1; O2SAT 99
== END 2024-12-27 10:56 | disposition home or self-care (01) ==
PROVIDERS: PCP Internal Medicine; Visit Provider Internal Medicine
PROC: (CPT 43248; principal; 2024-12-27 09:30)
DX: R13.14 Dysphagia, pharyngoesophageal phase (principal); K21.00 Gastro-esophageal reflux disease with esophagitis, without bleeding; K44.9 Diaphragmatic hernia without obstruction or gangrene; T18.2XXA Foreign body in stomach, initial encounter; W44.F3XA Food entering into or through a natural orifice, initial encounter; Z80.0 Family history of malignant neoplasm of digestive organs; R74.01 Elevation of levels of liver transaminase levels; E78.00 Pure hypercholesterolemia, unspecified; M81.0 Age-related osteoporosis without current pathological fracture; L40.50 Arthropathic psoriasis, unspecified; F32.A Depression, unspecified; Z79.620 Long term (current) use of immunosuppressive biologic; Z79.899 Other long term (current) drug therapy
CPT/HCPCS: 43248; C1769; J2003; J2704

== ENCOUNTER → 2024-12-27 07:38 | Outpatient (BNV) | payer MEDICARE, SELFPAY | PROVIDERS: PCP Internal Medicine; Visit Provider Internal Medicine | DX: R13.13 Dysphagia, pharyngeal phase (principal); J39.2 Other diseases of pharynx; Z91.199 Patient's noncompliance with other medical treatment and regimen due to unspecified reason | CPT/HCPCS: 43248 ==

== ENCOUNTER 2025-02-05 13:18 | Outpatient (AMB) | payer MEDICARE, SELFPAY ==
--- NOTE | 2025-02-05 13:19 | A.OFFVIS_ITS ---
Vital Signs 02/05/25 13:25 Height 5 ft 3 in Weight 171 lb BMI 30.3 BP 130/88 Blood Pressure Location Rt brachial Position Sitting Pulse 116 H Pulse Source Pulse Oximeter Pulse Oximetry (%) 97 Oxygen Delivery Method Room Air Intake Visit Reasons: Post op EGD, r/s 03/19, 01/29 Intake Note: Est pt for mgmt of GERD. S/P repeat EGD with dilation. CC: C.O. wanting to discuss cessation of PPI. Pt has stopped taking PPI and has been feeling better without it. 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 Avoid dietary triggers only as hiking. Staying upright for minimum 3 hours after meals discussed with patient. Transaminitis noted. Low fat, low salt, low carb high-protein diet recommended. Patient also will try to incorporate more fiber in her diet. Diverticulosis noted in the entire colon. List of food high in fiber given to patient. Patient will go for another endoscopy to re-evaluate diagnosed with esophagitis. I will see her after the procedure, sooner on as needed basis. Patient is agreeable to this plan and verbalizes understanding of instructions. She was given the opportunity to ask questions and all questions answered. ? Thank you for allowing me to participate in her care Changed Changed From pantoprazole take one tablet half an hour before breakfast 40 mg PO BID 30 tabs 2RF K21.9 Changed To pantoprazole 40 mg PO BID 60 tabs 2RF K21.9 UPPER ENDOSCOPY EGD Findings:? * Esophagus:? Small erosions measuring less than 5 mm noted at the GE junction. The Z line was at 35 cm displaced upwards by a hiatal hernia with the d iaphragmatic pinch at 39 cm. * Stomach:? Large amount of solid food noted in the stomach precluding most of the visualization in the body and fundus. The antrum appeared normal. Retroflexion in the cardia showed Hill grade 3 hiatal hernia. * Duodenum:? Normal mucosa was noted in the whole of the examined duodenum. Additional intervention: Soft tip Savary wire was introduced through the biopsy channel of the gastroscope and advanced to the antrum. ?The gastroscope was then backed out. ?Savary Dre bougie was advanced over the guidewire and the esophagus was dilated to 18 mm with resistance felt. ?On relook, superficial heme was noted confirming successful dilation at the level of cricopharyngeus. ? ? EGD Impressions:? * Cricopharyngeal stenosis (dilation) * Grade A esophagitis * Hiatal hernia * Food in stomach * Normal duodenum ?? Recommendations:?? * Continue PPI therapy. * Avoid NSAIDs, smoking and etOH * Can repeat EGD with dilation as needed for recurrence of symptoms TODAY'S VISIT Patient is here today for follow-up and to discuss upper endoscopy results. Patient denies any issues with anesthesia or procedure itself. Patient reports that she stopped taking pantoprazole, as when she was taking it she felt epigastric pain and diarrhea. However patient admits to taking it all the way up till she went for her endoscopy. Repeat endoscopy showed improvement. Clear esophagus except for mild inflammation at the GE junction. Patient reports that she has been exercising eating better and lost 20 lb since last visit. Upper endoscopy results discussed with patient. Small erosion near GE junction otherwise normal esophagus. There was a food in her stomach. Patient does not remember if she ate a lot before going to bed or not. Patient is surprised. S he does not feel full after eating. Patient denies dyspepsia, dysphagia or odynophagia. Denies melena, hematochezia, unintentional weight loss or ribbon like stools. Patient denies any other GI concerning symptoms. [facility] Medical History (Updated 02/05/25 @ 20:39 by Abigail Segal, ELECTRIC UTILITY LINEWORKER-) Hematuria Dysphagia Transaminitis Tubular adenoma History of mammogram Psoriatic arthritis Osteoporosis High cholesterol Depression Arthritis ADD (attention deficit disorder) Surgical History Hx of varicose vein ligation History of colonoscopy Family History Mother Pneumonia Breast cancer Father Asbestos exposure Lung cancer Colon cancer Sister Dysphagia High cholesterol Brother High cholesterol Obesity Brother Dysphagia Heart disease Brother Heart attack Kidney disease Social History Household Members: Spouse Both parents involved: No Caregiver staying overnight: No Housing: House Are you a primary direct support professional caregiver to a significant other at home: No Do you presently have visiting nurse or other home services: No 75 years or older and lives alone: No Alcohol intake: never Patient Tobacco Use Status: Never used Tobacco e-Cigarette/Vaping Use: Never Used service: No Current occupational status: retired Cognitive needs: No Hearing needs: No Vision needs: No Review of Systems Const Denies weight gain and Denies weight loss ENT Reports no additional complaints, Denies dysphagia and Denies odynophagia Card Reports no additional complaints Resp Reports no additional complaints GI Denies abdominal pain, Denies belching, Denies melena, Reports bloating, Denies change in bowel habits, Denies dysphagia, Denies excessive flatus, Denies dyspepsia, Reports heartburn, Denies diarrhea, Denies loose stools, Denies nausea, Denies odynophagia and Denies vomiting Reports no additional complaints Musc Reports no additional complaints Neuro Reports no additional complaints Psych Reports no additional complaints Endo Reports no additional complaints Physical Exam Vital Signs: Last Vital Signs Pulse 116 H 02/05/25 13:25 BP 130/88 02/05/25 13:25 Pulse Ox 97 02/05/25 13:25 Oxygen Delivery Method Room Air 02/05/25 13:25 BMI result Body Mass Index 30.3 Const General: healthy appearing and no acute distress Nutritional Appearance: well nourished and obese Orientation/consciousness: patient oriented x3 Resp Effort & Inspection: normal respiratory effort, able to speak in complete sentences, no tracheal deviation and symmetric chest movement Auscultation: clear to auscultation bilaterally Cardio Rate: regular rate GI Inspection: Yes normal to inspection, No distended and Yes obesity Palpation (GI): Soft to palpation, not firm, nontender and No hepatosplenomegaly present Auscultation: normal bowel sounds General: Yes no CVA tenderness Back/Spine/Pelvis Back: no CVA tenderness Skin General skin exam: elasticity normal, turgor normal and dry skin Neuro General: patient oriented x3 Psych Appearance: grossly normal Mental Status: mental status grossly normal Assessment & Plan Assessment & Plan (1) Transaminitis: Code(s): R74.01 - Elevation of levels of liver transaminase levels Category: Medical (2) Dysphagia: Code(s): R13.10 - Dysphagia, unspecified Category: Medical Qualifiers: Dysphagia type: pharyngoesophageal phase Qualified Code(s): R13.14 - Dysphagia, pharyngoesophageal phase (3) Gastroesophageal reflux disease: Code(s): K21.9 - Gastro-esophageal reflux disease without esophagitis Qualifiers: Esophagitis presence: esophagitis presence not specified Qualified Code(s): K21.9 - Gastro-esophageal reflux disease without esophagitis Plan Patient admits that she might have allergy. Occasionally patient feels like she speaks nasally. Patient was told that in the past. RAST allergen ordered. Patient will go for gastric emptying study to check for gastroparesis. She was encouraged to start taking PPI we will change it to esomeprazole. Patient will call our office if she will have any GI concerning symptoms. I will see her in 3-4 months, sooner on as needed basis. She is agreeable to this plan and verbalizes understanding of instructions. She was given the opportunity to ask questions and all questions answered. Thank you for allowing me to participate in her care Orders: Orders NM gastric emptying study Today R68.81 - Early satiety Rast Allergen Today K21.9 - Gastro-esophageal reflux disease without esophagitis Medications: New esomeprazole magnesium (Nexium) 40 mg PO DAILY 30 caps 2RF K21.9 - Gastro- esophageal reflux disease without esophagitis Coding Level of Care Code Est Pt Level 4 (29456) Complex EM visit Add On G2211 Diagnoses Transaminitis R74.01 Pharyngoesophageal dysphagia R13.14 Dysphagia type: pharyngoesophageal phase Gastroesophageal reflux disease, unspecified whether esophagitis present K21.9 Esophagitis presence: esophagitis presence not specified Time Spent (min) 40 Comment 25 minutes spent with patient and additional 15 minutes spent reviewing her records
[2025-02-05 13:25] VITALS: BP 130/88; PULSE 116; O2SAT 97; BMI 30.3
--- OUTSIDE RECORDS SUMMARY | 2025-02-05 14:25 | XMS_ITS | Encounter Summary ---
Author Organization [employer] Address [address] [place] [address] Care Team Providers Care Chief Risk Officer Name Role Phone Unavailable Primary Care Provider Unavailabl e Reason for Visit * Reason Onset Date Comments rescheduling 12/13/2024 Encounter Details Date Type Department Care Team (Late st Contact Info) Description 12/13/2024 Telephone [facility] [address] [place] [address] Susanna Handy DDS [address] [place] [address] rescheduling Social History Tobacco Use Types Packs/Day Years [...] encounter Miscellaneous Notes * Telephone Encounter - Guillermo Severino - 12/13/2024 4:10 PM EDT Patient wants to rs this appt for the I offered 1:30 and call to confirm but the office is currently closed. Please contact patient for rescheduling. ER documented in this encounter Plan of Treatment Not on file documented as of this encounter Visit Diagnoses Not on filedocumented in this encounter
== END 2025-02-05 13:48 | disposition home or self-care (01) ==
LOC: HO.HGI 13:18
PROVIDERS: PCP Internal Medicine; Visit Provider Nurse Practitioner Family
DX: R74.01 Elevation of levels of liver transaminase levels (principal); R13.14 Dysphagia, pharyngoesophageal phase; K21.9 Gastro-esophageal reflux disease without esophagitis
CPT/HCPCS: 99214; G2211

== ENCOUNTER 2025-02-05 13:18 | Outpatient (REF) | payer MEDICARE, SELFPAY ==
[2025-02-12 08:24] LABS: Class Almond 0; Class Brazil Nut 0; Class Cashew 0; Class Codfish 0; Class Cow's Milk 0; Class Egg white 0; Class Hazelnut 0; Class Macadamia Nut 0; Class Peanut 0; Class Salmon 0; Class Scallop 0; Class Sesame Seed 0; Class Shrimp 0; Class Soybean 0; Class Tuna 0; Class Walnut 0; Class Wheat 0/1; F345-IgE Macadmia Nut <0.10 kU/L
== END 2025-02-05 13:19 | disposition home or self-care (01) ==
LOC: HO.LAB 13:18
PROVIDERS: PCP Internal Medicine; Visit Provider Nurse Practitioner Family
DX: K21.00 Gastro-esophageal reflux disease with esophagitis, without bleeding (principal); R74.01 Elevation of levels of liver transaminase levels; R13.14 Dysphagia, pharyngoesophageal phase; Z79.899 Other long term (current) drug therapy
CPT/HCPCS: 36415; 86003; 99212

== ENCOUNTER → 2025-03-28 08:03 | Outpatient (REF) | payer MEDICARE, SELFPAY ==
--- NOTE | ~2025-03-28 | NM_ITS ---
EXAMINATION: AR RADIONUCLIDE SOLID FOOD GASTRIC EMPTYING 4-HOUR STUDY CLINICAL INFORMATION: R68.81 - Early satiety COMPARISON: There are no prior studies available for comparison. TECHNIQUE: A standard meal consisting of 4 oz of Egg Beaters brand tagged with 0.92 mCi Tc-99m Sulfur Colloid, 6 oz water and 1 slice of toast with jelly was administered orally to the patient. Images were obtained using a dual head gamma camera in the anterior and posterior projections over of the stomach immediately post ingestion and at hourly intervals up to 4 hours post ingestion. The anterior and posterior counts at each time interval were averaged using the geometric mean and expressed as percentage of the immediate post ingestion counts. FINDINGS: There is visualization of activity in the stomach immediately post ingestion. As the study progresses, there is clearance of activity from the stomach and visualization of progressively increasing small bowel activity. By the end of the study, there is almost no retention noted in the stomach. Retention in the stomach at each time interval was: 1 hour 57% (normal 37%-90%) 2 hours 17% (normal 30%-60%) 3 hours 11% 4 hours 2% (normal 0%-10%) AR/AR gastric emptying study IMPRESSION: Normal 4-hour solid food gastric emptying study. For solid meal, rapid gastric emptying is less than 30% at 60 minutes. Delayed gastric emptying criteria is more than 60% remaining at 120 minutes or more than 10% at 240 minutes. The 4-hour value is the best discriminator of a normal or abnormal result). Gastric emptying study grading per JNMT Consensus Recommendations in 2008 (https://tech.snmjournals.org/content/36/1/44) Grade 1 (mild retention): 11-20% at 4h Grade 2 (moderate retention): 21-35% at 4h Grade 3 (severe retention): 36-50% at 4h Grade 4 (very severe retention): >50% retention at 4h Electronically signed by: Mak Patel MD 03/28/2025 01:13 PM EDT
== END ==
LOC: HO.NUCMED 08:03
PROVIDERS: PCP Internal Medicine; Visit Provider Nurse Practitioner Family
DX: R68.81 Early satiety (principal)
CPT/HCPCS: 78264; A9541

== ENCOUNTER → 2025-03-28 08:05 | Outpatient (BNV) | payer MEDICARE, SELFPAY | PROVIDERS: PCP Internal Medicine; Visit Provider Radiology Diagnostic Radiology | DX: R68.81 Early satiety (principal) | CPT/HCPCS: 78264 ==

== ENCOUNTER 2025-04-12 10:57 | Outpatient (REF) | payer MEDICARE, SELFPAY ==
--- OUTSIDE RECORDS SUMMARY | 2025-04-12 12:44 | XMS_ITS | Encounter Summary ---
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 Patient understood. Called front end loader driver and spoke with Genna and provided a run through of our conversation documented in this encounter Plan of Treatment Not on file documented as of this encounter Visit Diagnoses Not on filedocumented in this encounter
--- OUTSIDE RECORDS SUMMARY | 2025-04-12 12:44 | XMS_ITS | Clinical Summary ---
Author Organization [facility] Address [address] [place] [address] Care Team Providers Care Boatbuilder Apprentice Wood Name Role Phone Unavailable Primary Care Provider [...] Encounters Date Type Department Care Team Description 01/11/2025 1:30 PM EDT Office Visit [facility] [address] [place] [address] Susanna Handy DDS from Last 3 Months [...] 1966 Hepatitis C Screening 1972 Mammogram 1994 Pneumococcal Vaccine: 50+ Years (3 of 3 - PCV20 or PCV21) 12/28/2023 12/27/2018, 06/13/2018 DTaP/Tdap/Td Vaccines (3 - Td or Tdap) 09/16/2024 09/16/2014, 06/19/2008 Dental Oral Exam 10/24/2024 04/24/2024 Dental Prophylaxis 10/24/2024 04/24/2024 COVID-19 Vaccine ( season) 2025 04/01/2024, 04/28/2023, 03/27/2022, Additional history exists Influenza Vaccine (#1) 2025 , 04/28/2023, 03/25/2022, Additional history exists Dental X-Ray: Bitewings 04/25/2025 04/24/2024, 03/06 Tobacco Screening 01/11/2026 01/11/2025 Dental X-Ray: Full Mouth 04/25/2027 04/24/2024, 03/18 RSV Patients and Patients Aged 60 years or older (1 - 1-dose 75+ series) 2029 Zoster Vaccines Completed 08/07/2019, 05/14/2019 HIB Vaccines Aged Out No longer eligi [...] patient's age to complete this topic Meningococcal B Vaccine Aged Out No l onger eligible based on patient's age to complete [...] Procedure Name Priority Date/Time Associated Diagnosis Comments DENTURE FOLLOWUP Routine 01/11/2025 1:30 PM EDT PROPHYLAXIS - ADULT Routine 04/24/2024 1 0:00 AM EDT INTRAORAL - COMPLETE SERIES OF RADIOGRAPHIC IMAGES Routine 04/24/2024 10:00 AM EDT COMPREHENSIVE ORAL EVALUATION - NEW OR ESTABLISHED PATIENT Routine 04/24/2024 10:00 AM EDT from Last 3 Months or Most Recently Relevant to Health Maintenance Insurance [facility] MEDICARE REPLACEMENT PPO DENTAL - [facility] [place] [address]
[2025-04-12 14:16] LABS: MANUAL DIFF FLAG NO
[2025-04-12 14:37] LABS: Hematocrit 39.7 % (37.0-47.0); Hemoglobin 13.0 g/dl (12.0-16.0); Imm Gran Abs Auto 0.01 X10*3/uL (0.00-0.03); Imm Gran Pct Auto 0.2 % (0.0-0.4); Lymphocytes Absolute Auto 1.7 X10*3/uL (1.2-4.9); Mean Corpuscular HGB Conc 32.7 g/dl (31.0-35.0); Mean Corpuscular Hemoglobin 30.2 pg (27.0-33.0); Mean Corpuscular Volume 92.1 fL (80.0-98.0); NRBC Abs Auto 0.000 X10*3/uL (0.0-0.012); NRBC Pct Auto 0.0 /100WBC (0.0-0.2); Platelet Count 289 X10*3/uL (160-400); Red Blood Count 4.31 X10*6/uL (4.20-5.50); White Blood Count 4.8 X10*3/uL (4.8-10.8)
[2025-04-12 14:45] LABS: Alanine Aminotransferase 32 U/L (0-31); Albumin Level 4.1 g/dL (3.5-5.0); Aspartate Amino Transferase 30 U/L (5-31); Estimated Glomerular Filt Rate > 60
[2025-04-12 15:06] LABS: Hemoglobin A1C 129.3347 umol/L; Total Hemoglobin (HGBA1C) 3912.8376 umol/L
[2025-04-12 15:10] LABS: Alanine Aminotransferase 32 U/L (0-31); Albumin Level 4.1 g/dL (3.5-5.0); Alkaline Phosphatase 72 U/L (39-117); Anion Gap 7 (12-20); Aspartate Amino Transferase 33 U/L (5-31); Blood Urea Nitrogen 20 mg/dL (9-16); Calcium 9.1 mg/dL (8.4-10.2); Carbon Dioxide 29 mmol/L (22-29); Chloride 107 mmol/L (96-108); Cholesterol 202 mg/dL (<200); Estimated Glomerular Filt Rate > 60; HDL Cholesterol 57 mg/dL (>40); Potassium 4.4 mmol/L (3.3-5.1); Sodium 139 mmol/L (135-145); Total Protein 7.0 g/dL (6.5-8.0); Triglycerides 158 mg/dL (<150)
== END 2025-04-12 10:58 | disposition home or self-care (01) ==
LOC: HO.WFDLDS 10:57
PROVIDERS: Visit Provider Internal Medicine
DX: F32.A Depression, unspecified (principal); L40.50 Arthropathic psoriasis, unspecified; E78.00 Pure hypercholesterolemia, unspecified; R35.89 Other polyuria; R53.82 Chronic fatigue, unspecified; Z13.1 Encounter for screening for diabetes mellitus
CPT/HCPCS: 36415; 80053; 80061; 82040; 82565; 83036; 84443; 84450; 84460; 85025; 86140

== ENCOUNTER 2025-04-15 10:00 | Outpatient (AMB) | payer MEDICARE, SELFPAY ==
--- NOTE | 2025-04-15 10:16 | A.OFFPC_ITS ---
Vital Signs 04/15/25 10:17 Height 5 ft 3 in Weight 171 lb BMI 30.3 BP 130/82 Blood Pressure Location Lt brachial Position Sitting Respiration 14 Pulse 96 Pulse Source Pulse Oximeter Temp 98.7 F Temp Source Oral Pulse Oximetry (%) 96 Oxygen Delivery Method Room Air Intake Visit Reasons: 6 Months Intake Note: Six month follow up Film Producer Required: No Allergies No Known Allergies Allergy (Verified 04/15/25 10:20) Tobacco use date assessed: 10/11/24 Dental Screening Dental Screen Date: 10/11/24 HPI HPI Comments History of Present Illness Details The patient is a 69 year old female with a past medical history of psoriatic arthritis, depression, ADD, hyperlipidemia, presenting for follow up GI: Since her last visit had double endoscopy 09/25/2024 and then another EGD with dilatation. Psoriatric arthritis: On enbrel once weekly injections. Follows with rheumatology at [facility]. Sees every 6 months to a year. Left arm tingling numbness, discomfort stemming from left neck shoulder-seeing [facility]. Went to PT in [place] about 4 times then continued to do exercises at home. This has improving. Depression/ADD: On venlafaxine 150mg daily and Adderall 20mg daily. Negative sleep study-reviewed with patient CV: On fluvastatin. Normal stress test 2022. Still has some shortness of breath with activity which has been stable. Denies chest pain. Preventive: Colonoscopy 09/25/2024-5 year repeat Mammogram-scheduled 05/2025 ROS see HPI PHYSICAL EXAM: GENERAL: Alert and oriented x 3. NAD EYES: EOMI. Anicteric. HENT: Moist mucous membranes.No scleral icterus. No cervical lymphadenopathy. LUNGS: Clear to auscultation bilaterally. CARDIOVASCULAR: Regular rate and rhythm. ABDOMEN: Soft, non-tender +bs EXTREMITIES: No edema. Non-tender. SKIN: No rashes or lesions. Warm. NEUROLOGIC: No focal neurological deficits. CN II-XII grossly intact PSYCHIATRIC: Cooperative. Appropriate mood and affect [facility] Medical History Hematuria Dysphagia Transaminitis Tubular adenoma History of mammogram Psoriatic arthritis Osteoporosis High cholesterol Depression Arthritis ADD (attention deficit disorder) Surgical History H/O endoscopy Hx of varicose vein ligation History of colonoscopy Family History Mother Pneumonia Breast cancer Father Asbestos exposure Lung cancer Colon cancer Sister Dysphagia High cholesterol Brother High cholesterol Obesity Brother Dysphagia Heart disease Brother Heart attack Kidney disease Social History Household Members: Spouse Both parents involved: No Caregiver staying overnight: No Housing: House Are you a primary rn progressive care to a significant other at home: No Do you presently have visiting nurse or other home services: No 75 years or older and lives alone: No Alcohol intake: never Patient Tobacco Use Status: Never used Tobacco e-Cigarette/Vaping Use: Never Used Use of substances other than those prescribed or required for medical reasons: No service: No Current occupational status: retired Cognitive needs: No Hearing needs: No Vision needs: No Questionnaire Thrive Questionnaire Date Thrive assessed: 10/11/24 I am a: Patient What is your living situation today?: I have a steady place to live Within the past 12 months, did the food you bought not last and you didn't have the money to get more?: Never true Within the past 12 months, did you worry whether your food would run out before you got money to buy more?: Never true Do you have trouble paying for medicines?: No Do you have trouble getting transportation to medical appointments?: No Do you have trouble paying your heating and electricity bill?: No Do you have trouble taking care of your child, family member or friend?: No Do you have trouble with day-to-day activities such as bathing, preparing meals, shopping, managing finances, etc.?: No Are you currently unemployed and looking for a job?: No Are you interested in more education?: No Please select the resources that you would like help with: None Currently or been in a relationship where the following occur: No concerns reported THRIVE Score: 0 RONALD-7 AMB Questionnaire RONALD-7 Date RONALD - 7 assessed: 10/11/24 Source: Developed by Drs. Mak Caballero, Sayra Bowles, Winston Mitchell and colleagues, with an educational vinicio from [employer]. Physical exam (Primary Care) Vital Signs: Last Vital Signs Temp 98.7 F 04/15/25 10:17 Pulse 96 04/15/25 10:17 Resp 14 04/15/25 10:17 BP 130/82 04/15/25 10:17 Pulse Ox 96 04/15/25 10:17 Oxygen Delivery Method Room Air 04/15/25 10:17 BMI result Body Mass Index 30.3 Tobacco/Smoking Status: Tobacco use Status Tobacco use date assessed 10/11/24 04/15/25 10:24 Patient Tobacco Use Status Never used Tobacco 04/15/25 10:24 e-Cigarette/Vaping Use Never Used 04/15/25 10:24 Thrive Assessment: Date of Thrive Assessment Date Thrive assessed 10/11/24 04/15/25 10:24 Currently or been in a relationship where the following occur: No concerns reported Coding Level of Care Code Est Pt Level 4 (36098) Complex EM visit Add On G2211 Diagnoses High cholesterol E78.00 Depression, unspecified depression type F32.A Depression Type: unspecified Osteoporosis, unspecified osteoporosis type, unspecified pathological fracture presence M81.0 Osteoporosis type: unspecified Presence of current pathological fracture: unspecified Psoriatic arthritis L40.50 Assessment & Plan Assessment & Plan (1) High cholesterol: Code(s): E78.00 - Pure hypercholesterolemia, unspecified Category: Medical (2) Depression: Code(s): F32.A - Depression, unspecified Category: Medical Qualifiers: Depression Type: unspecified Qualified Code(s): F32.A - Depression, unspecified (3) Osteoporosis: Code(s): M81.0 - Age-related osteoporosis without current pathological fracture Category: Medical Qualifiers: Osteoporosis type: unspecified Presence of current pathological fracture: unspecified Qualified Code(s): M81.0 - Age-related osteoporosis without current pathological fracture (4) Psoriatic arthritis: Code(s): L40.50 - Arthropathic psoriasis, unspecified Category: Medical Plan Psoriatic arthritis-continue dermatology follow up. pain level increased. osteoporosis. requests rheumatology Depression is stable on current medications Hyperlipidemia-stable on pravastatin Orders: Orders XR DEXA axial skeleton 04/15/25 M81.0 - Age-related osteoporosis without current pathological fracture CRP High Sensitivity 04/15/25 R06.09 - Other forms of dyspnea Referrals Rheumatology Referral L40.50 - Arthropathic psoriasis, unspecified
[2025-04-15 10:17] VITALS: BP 130/82; PULSE 96; RESP 14; TEMP 37.1; O2SAT 96; BMI 30.3
--- OUTSIDE RECORDS SUMMARY | 2025-04-15 11:00 | XMS_ITS | Clinical Summary ---
Author Organization [employer] [facility] Address [address] [place] [address] Care Team Providers Care Gambling Supervisor Name Role Phone Unavailable Primary Care Provider [...] Active Active Problems No known active problems Social History Tobacco Use Types Packs/Day Years [...] Procedure Name Priority Date/Time Associated Diagnosis Comments PROPHYLAXIS - ADULT Routine 04/24/2024 1 0:00 AM EDT INTRAORAL - COMPLETE SERIES OF RADIOGRAPHIC IMAGES Routine 04/24/2024 10:00 AM EDT COMPREHENSIVE ORAL EVALUATION - NEW OR ESTABLISHED PATIENT Routine 04/24/2024 10:00 AM EDT from Last 3 Months or Most Recently Relevant to Health Maintenance Insurance [facility] MEDICARE REPLACEMENT PPO DENTAL - [facility] [place] [address]
--- OUTSIDE RECORDS SUMMARY | 2025-04-15 11:00 | XMS_ITS | Encounter Summary ---
Author Organization [employer] Address [address] [place] [address] Care Team Providers Care Derrick Follower Name Role Phone Unavailable Primary Care Provider Unavailabl e Encounter Details Date Type Department Care Team (Late st Contact Info) Description 03/06/2024 Telephone [facility] ADULT DENTAL [address] [place], [place] [phone] Susanna Handy DDS Social History Tobacco Use [...] Miscellaneous Notes * Telephone Encounter - Cherelle Dengs - 03/06/2024 8:23 AM EDT Patient is [...] through the residency program. Patient understood. Called helpdesk administrator and spoke with Genna and provided a run through of our conversation documented in this encounter Plan of Treatment Not on file documented as of this encounter Visit Diagnoses Not on filedocumented in this encounter
== END 2025-04-15 11:03 | disposition home or self-care (01) ==
LOC: HO.HMCFM 10:01
PROVIDERS: PCP Internal Medicine; Visit Provider Internal Medicine
DX: E78.00 Pure hypercholesterolemia, unspecified (principal); F32.A Depression, unspecified; M81.0 Age-related osteoporosis without current pathological fracture; L40.50 Arthropathic psoriasis, unspecified

== ENCOUNTER → 2025-04-15 10:00 | Outpatient (BNVA) | payer MEDICARE, SELFPAY | PROVIDERS: PCP Internal Medicine; Visit Provider Internal Medicine | DX: E78.00 Pure hypercholesterolemia, unspecified (principal); F32.A Depression, unspecified; M81.0 Age-related osteoporosis without current pathological fracture; L40.50 Arthropathic psoriasis, unspecified; Z79.899 Other long term (current) drug therapy | CPT/HCPCS: 99212 ==

== ENCOUNTER 2025-05-14 15:24 | Outpatient (AMB) | payer MEDICARE, SELFPAY ==
--- NOTE | 2025-05-14 15:28 | A.OFFVIS_ITS ---
Vital Signs 05/14/25 15:33 Height 5 ft 3 in Weight 170 lb BMI 30.1 BP 126/82 Blood Pressure Location Rt brachial Position Sitting Pulse 102 H Pulse Source Pulse Oximeter Pulse Oximetry (%) 97 Oxygen Delivery Method Room Air Intake Visit Reasons: GERD w/ dysphagia mgmt. Added from CL. Intake Note: Est pt for mgmt of GERD. Review allergy testing. CC: Pt denies any new GI sx or concerns at this time. No longer taking PPI as they were having adverse reactions to their last PPI and they don't feel that they need it as of now anyways. Captain Of Guards Required: No Accompanied by: Self / Same As Patient Allergies house dust Allergy (Mild, Verified 05/14/25 15:31) Sneezing HPI HPI GERD w/ dysphagia mgmt. Added from CL.: Details: LAST VISIT Transaminitis Dysphagia Gastroesophageal reflux disease Plan Patient admits that she might have allergy. Occasionally patient feels like she speaks nasally. Patient was told that in the past. RAST allergen ordered. Patient will go for gastric emptying study to check for gastroparesis. She was encouraged to start taking PPI we will change it to esomeprazole. Patient will call our office if she will have any GI concerning symptoms. I will see her in 3-4 months, sooner on as needed basis. She is agreeable to this plan and verbalizes understanding of instructions. She was given the opportunity to ask questions and all questions answered. ? Thank you for allowing me to participate in her care Orders NM gastric emptying study Today R68.81 Rast Allergen Today K21.9 New esomeprazole magnesium (Nexium) 40 mg PO DAILY 30 caps 2RF K21.9 TODAY'S VISIT Patient is here today for follow-up. Patient reports that she no longer is taking any PPI. Patient reports that she does not have any symptoms. Trying to avoid dietary triggers. Gastric emptying study was normal. Rest allergen showed allergies to dust. Patient however had endoscopy that showed eosinophilic esophagitis and she should be on PPI. Patient denies any dyspepsia, dysphagia or odynophagia. Denies any melena, hematochezia, unintentional weight loss or ribbon like stools. PFS Medical History Hematuria Dysphagia Transaminitis Tubular adenoma History of mammogram Psoriatic arthritis Osteoporosis High cholesterol Depression Arthritis ADD (attention deficit disorder) Surgical History H/O endoscopy Hx of varicose vein ligation History of colonoscopy Family History Mother Pneumonia Breast cancer Father Asbestos exposure Lung cancer Colon cancer Sister Dysphagia High cholesterol Brother High cholesterol Obesity Brother Dysphagia Heart disease Brother Heart attack Kidney disease Social History Household Members: Spouse Housing: House Are you a primary technical healthcare consultant to a significant other at home: No Do you presently have visiting nurse or other home services: No Alcohol intake: never Patient Tobacco Use Status: Never used Tobacco e-Cigarette/Vaping Use: Never Used service: No Current occupational status: retired Cognitive needs: No Hearing needs: No Vision needs: No Review of Systems Const Denies weight gain and Denies weight loss ENT Reports no additional complaints, Denies dysphagia and Denies odynophagia Card Reports no additional complaints Resp Reports no additional complaints GI Denies abdominal pain, Denies belching, Denies melena, Denies bloating, Denies change in bowel habits, Denies dysphagia, Denies excessive flatus, Denies dyspepsia, Denies heartburn, Denies diarrhea, Denies loose stools, Denies nausea, Denies odynophagia and Denies vomiting Musc Reports no additional complaints Neuro Reports no additional complaints Psych Reports no additional complaints Endo Reports no additional complaints Physical Exam Vital Signs: Last Vital Signs Pulse 102 H 05/14/25 15:33 BP 126/82 05/14/25 15:33 Pulse Ox 97 05/14/25 15:33 Oxygen Delivery Method Room Air 05/14/25 15:33 BMI result Body Mass Index 30.1 Const General: healthy appearing and no acute distress Nutritional Appearance: well nourished and obese Orientation/consciousness: patient oriented x3 Resp Effort & Inspection: normal respiratory effort, able to speak in complete sentences, no tracheal deviation and symmetric chest movement Auscultation: clear to auscultation bilaterally Cardio Rate: regular rate GI Inspection: Yes normal to inspection, No distended and Yes obesity Palpation (GI): Soft to palpation, not firm, nontender and No hepatosplenomegaly present Auscultation: normal bowel sounds General: Yes no CVA tenderness Back/Spine/Pelvis Back: no CVA tenderness Skin General skin exam: elasticity normal, turgor normal and dry skin Neuro General: patient oriented x3 Psych Appearance: grossly normal Mental Status: mental status grossly normal Results Reviewed Results Reviewed: GES: FINDINGS: There is visualization of activity in the stomach immediately post ingestion. As the study progresses, there is clearance of activity from the stomach and visualization of progressively increasing small bowel activity. By the end of the study, there is almost no retention noted in the stomach. Retention in the stomach at each time interval was: 1 hour 57% (normal 37%-90%) 2 hours 17% (normal 30%-60%) 3 hours 11% 4 hours 2% (normal 0%-10%) NM/NM gastric emptying study IMPRESSION: Normal 4-hour solid food gastric emptying study. Assessment & Plan Assessment & Plan (1) Dysphagia: Code(s): R13.10 - Dysphagia, unspecified Category: Medical Qualifiers: Dysphagia type: pharyngoesophageal phase Qualified Code(s): R13.14 - Dysphagia, pharyngoesophageal phase (2) Transaminitis: Code(s): R74.01 - Elevation of levels of liver transaminase levels Category: Medical (3) Eosinophilic esophagitis: Code(s): K20.0 - Eosinophilic esophagitis Plan Patient will start taking pantoprazole daily. Avoid dietary triggers in late night snacking. Staying upright for minimal 3 hours after meals discussed with patient. History of eosinophilic esophagitis and upper GI with barium swallow showed chronic reflux. Patient does have allergy to dust. History of transaminitis, weight loss and exercise recommended. Follow-up in 1 year. Patient was encouraged to call our office if she will have any GI concerning symptoms. She is agreeable to this plan and verbalizes understanding of instructions. She was given the opportunity to ask questions and all questions answered Thank you for allowing me to participate in her care Medications: New pantoprazole 20 mg PO DAILY 90 tabs 1RF Coding Level of Care Code Est Pt Level 4 (57556) Complex visit Add On G2211 Diagnoses Pharyngoesophageal dysphagia R13.14 Dysphagia type: pharyngoesophageal phase Transaminitis R74.01 Eosinophilic esophagitis K20.0 Time Spent (min) 40 Comment 25 minutes spent with patient and additional 15 minutes spent reviewing her records
[2025-05-14 15:33] VITALS: BP 126/82; PULSE 102; O2SAT 97; BMI 30.1
--- OUTSIDE RECORDS SUMMARY | 2025-05-14 19:48 | XMS_ITS | Clinical Summary ---
Author Organization [facility] Address [address] [place] [address] Care Team Providers Care On Site Coordinator Name Role Phone Unavailable Primary Care [...] Encounters Date Type Department Care Team Description 05/13/2025 Telephone [facility] ADULT DENTAL [address] [place], [place] [phone] Corina Carney [facility] prophy from Last 3 Months Social History Tobacco [...] Encounters Date Type Department Care Team (Late Contact Info) Description 06/19/2025 8:45 AM EST Office Visit [facility] ADULT DENTAL [address] [place] [address] CarneyCorina Health Maintenance Due Date Last Done Comments [...] Exam 10/24/2024 04/24/2024 Dental Prophylaxis 10/24/2024 04/24/2024 Influenza Vaccine (#1) 2025 , 04/28/2023, 03/25/2022, Additional history exists Dental X-Ray: Bitewings 04/25/2025 04/24/2024, 03/06 Tobacco Screening 01/11/2026 01/11/2025 Dental X-Ray: Full Mouth 04/25/2027 04/24/2024, 03/18 RSV Patients and Patients Aged 60 years or older (1 - 1-dose 75+ series) 2029 Zoster Vaccines Completed 08/07/2019, 05/14/2019 COVID-19 Vaccine Completed 04/20/2025, , 04/28/2023, Additional history exists HIB Vaccines Aged Out No longer eligi [...] Most Recently Relevant to Health Maintenance Insurance [facility] MEDICARE REPLACEMENT PPO DENTAL - [facility]
--- OUTSIDE RECORDS SUMMARY | 2025-05-14 19:48 | XMS_ITS | Encounter Summary ---
Author Organization [employer] Address [address] [place] [address] Care Team Providers Care Glass Installer Name Role Phone Unavailable Primary Care Provider Unavailabl e Encounter Details Date Type Department Care Team (Late st Contact Info) Description 03/06/2024 Telephone [facility] [address] [place], [place] [phone] Susanna Handy DDS Social History Tobacco Use [...] than if patient goes to an office where it is in network. Patient also applied for SFS which she was approved for level 3 but at the time she did not know that she had [employer] insurance. Upon speaking with Caitlyn, it was confirmed that he SFS would cover a portion of the difference that the patient would hve to pay out of pocket. Patientis aware that if she does not have [...] covers the emergency and nothing else so shewould not be receiving a implant evaluation. It [...] the residency program. Patient understood. Called front office medical assistant and spoke with Genna and provided a run through of our conversation DR documented in this encounter Plan of Treatment Upcoming Encounters Date Type Department Care Team (Late st Contact Info) Description 06/19/2025 8:[address] EST [address] [facility] ADULT DENTAL [address] [place] [address] Corina Carney documented as of this encounter Visit Diagnoses Not on filedocumented in this encounter
--- OUTSIDE RECORDS SUMMARY | 2025-05-14 19:48 | XMS_ITS | Encounter Summary ---
Author Organization [employer] [facility] Address [address] [place] [address] Care Team Providers Care Supervisor Machine Setter Name Role Phone Unavailable Primary Care Provider Unavailabl e Reason for Visit * Reason Onset Date Comments [facility] prophy 05/13/2025 Encounter Details Date Type Department Care Team (Late st Contact Info) Description 05/13/2025 Telephone [facility] ADULT DENTAL [address] [place] [address] Corina Carney [facility] prophy Social History Tobacco Use Types Packs/Day Years [...] * Telephone Encounter - Cherelle Choudhury - 05/13/2025 12:22 PM EDT Patient would like to get cleaings in [facility] vs [facility]. documented in this encounter Plan of Treatment Upcoming Encounters Date Type Department Care Team (Late st Contact Info) Description 06/19/2025 8:45 AM EST Office Visit [facility] ADULT DENTAL [address] [place] [address] Corina Carney documented as of this encounter Visit Diagnoses Not on filedocumented in this encounter
== END 2025-05-14 15:53 | disposition home or self-care (01) ==
LOC: HO.HGI 15:25
PROVIDERS: PCP Internal Medicine; Visit Provider Nurse Practitioner Family
DX: R13.14 Dysphagia, pharyngoesophageal phase (principal); R74.01 Elevation of levels of liver transaminase levels; K20.0 Eosinophilic esophagitis
CPT/HCPCS: 99214; G2211

== ENCOUNTER → 2025-05-14 15:24 | Outpatient (BNVA) | payer MEDICARE, SELFPAY | PROVIDERS: PCP Internal Medicine; Visit Provider Nurse Practitioner Family | DX: R13.14 Dysphagia, pharyngoesophageal phase (principal); R74.01 Elevation of levels of liver transaminase levels; K20.0 Eosinophilic esophagitis | CPT/HCPCS: 99212 ==

== ENCOUNTER 2025-05-27 13:10 | Outpatient (REF) | payer MEDICARE, SELFPAY ==
--- NOTE | ~2025-05-27 | MM_ITS ---
EXAMINATION: MM SCREENING DIGITAL BREAST TOMOSYNTHESIS, BILATERAL CLINICAL INFORMATION: Screening. Asymptomatic. COMPARISON: May 21, 2024 and April 27, 2023. TECHNIQUE: Digital breast tomosynthesis is performed in mediolateral oblique and craniocaudal views along with computer-aided detection (CAD). Synthesized 2D images are generated from the tomosynthesis. FINDINGS: BREAST COMPOSITION: There are scattered areas of fibroglandular density. BILATERAL BREASTS: No significant masses, suspicious calcifications or other abnormalities are seen in either breast. MM/MM tomosynthesis screening BI IMPRESSION: BILATERAL BREASTS: Negative, no mammographic evidence of malignancy. Normal interval follow-up is recommended in 12 months. ASSESSMENT: BI-RADS: Category 1: Negative RECOMMENDATION: Routine annual mammography screening. FOLLOW-UP: 1 year F/U This examination should not preclude the clinical evaluation of a suspicious palpable abnormality. This patient's information was entered into a reminder system with a target due date for their next mammogram. Electronically signed by: Lolis Hodge MD 05/28/2025 08:58 PM [facility]
--- OUTSIDE RECORDS SUMMARY | 2025-05-27 15:20 | XMS_ITS | Encounter Summary ---
Author Organization [employer] Address [address] [place] [address] Care Team Providers Care Computer Programmer Analyst Name Role Phone Unavailable Primary Care Provider Unavailabl e Encounter Details Date Type Department Care Team (Late st Contact Info) Description 03/06/2024 Telephone [facility] ADULT DENTAL [address] [place], [place] [phone] Susanna Handy DDS Social History Tobacco Use [...] the residency program. Patient understood. Called front services agent and spoke with Genna and provided a run through of our conversation DR documented in this encounter Plan of Treatment Upcoming Encounters Date Type Department Care Team (Late st Contact Info) Description 06/21/2025 8:45 AM EST Office Visit [facility] ADULT DENTAL [address] [place] [address] Corina Carney documented as of this encounter Visit Diagnoses Not on filedocumented in this encounter
--- OUTSIDE RECORDS SUMMARY | 2025-05-27 15:20 | XMS_ITS | Clinical Summary ---
Author Organization [employer] [facility] Address [address] [place] [address] Care Team Providers Care Fur Stylist Name Role Phone Unavailable Primary Care Provider [...] Encounters Date Type Department Care Team Description 05/23/2025 Telephone [facility] ADULT DENTAL [address] [place] [address] Corina Carney 05/13/2025 Telephone [facility] ADULT DENTAL [address] [place] [address] Corina Carney [facility] prophy from Last 3 Months Social History [...] Description 06/21/2025 8:45 AM EST Office Visit [facility] [address] [facility] [place] [address] Corina Carney Health Maintenance Due Date Last Done Comments [...] Most Recently Relevant to Health Maintenance Insurance [facility] MEDICARE REPLACEMENT PPO DENTAL - [facility] D[facility]AL
--- OUTSIDE RECORDS SUMMARY | 2025-05-27 15:20 | XMS_ITS | Encounter Summary ---
Author Organization [facility] [facility] Address [address] [place] [address] Care Team Providers Care Head Orthopedic Team Physician Name Role Phone Unavailable Primary Care Provider Unavailabl e Reason for Visit * Reason Onset Date Comments [facility] prophy 05/13/2025 Encounter Details Date Type Department Care Team (Late Contact Info) Description 05/13/2025 Telephone [facility] ADULT DENTAL [address] [place] [address] Corina Carney [facility] prophy Social History Tobacco Use Types [...] Patient would like to get cleaings in [facility] vs [facility]. documented in this encounter Plan of Treatment Upcoming Encounters Date Type Department Care Team (Late st Contact Info) Description 06/21/2025 8:45 AM EST Office Visit [facility] ADULT DENTAL [address] [place] [address] Corina Carney documented as of this encounter Visit Diagnoses Not on filedocumented in this encounter
--- OUTSIDE RECORDS SUMMARY | 2025-05-27 15:20 | XMS_ITS | Encounter Summary ---
Author Organization [employer] [facility] Address [address] [place] [address] Care Team Providers Care Filament Shaper Name Role Phone Unavailable Primary Care Provider Unavailabl e Encounter Details Date Type Department Care Team ([facility] Contact Info) Description 05/23/2025 Telephone [facility] ADULT DENTAL [address] [place] [address] Corina Carney Social History Tobacco Use Types Packs/Day Years [...] encounter Miscellaneous Notes * Telephone Encounter - Naida Melchor - 05/23/2025 1:15 PM EST Called patient to reschedule an appointment but there was no answer but there was no answer so I left a message with new appointment date and explaining. documented in this encounter Plan of Treatment Upcoming Encounters Date Type Department Care Team (Late Contact Info) Description 06/21/2025 8:45 AM EST Office Visit [facility] ADULT DENTAL [address] [place] [address] Corina Carney documented as of this encounter Visit Diagnoses Not on filedocumented in this encounter
== END 2025-05-27 13:11 | disposition home or self-care (01) ==
LOC: HO.MAMMO 13:10
PROVIDERS: PCP Internal Medicine; Visit Provider Internal Medicine
DX: Z12.31 Encounter for screening mammogram for malignant neoplasm of breast (principal)
CPT/HCPCS: 77063; 77067

== ENCOUNTER → 2025-05-27 13:15 | Outpatient (BNV) | payer MEDICARE, SELFPAY | PROVIDERS: PCP Internal Medicine; Visit Provider Radiology Body Imaging | DX: Z12.31 Encounter for screening mammogram for malignant neoplasm of breast (principal) | CPT/HCPCS: 77063; 77067 ==

== ENCOUNTER 2025-06-05 10:56 | Outpatient (REF) | payer MEDICARE, SELFPAY ==
--- NOTE | ~2025-06-05 | MM_ITS ---
EXAMINATION: DXA BONE DENSITY AXIAL HISTORY: M81.0 - Age-related osteoporosis without current pathological fracture TECHNIQUE: Syapse Dual energy absorptiometry (DEXA) of the lumbar spine, total left hip, and femoral neck was performed. COMPARISON: There are no prior studies for comparison. FINDINGS: The bone mineral density of the lumbar spine is 1.052 g/cm2, corresponding to a T-score of -1.1, and a Z-score of 0.3. This is indicative of osteopenia. The bone mineral density of the left total hip is 0.733 g/cm2, corresponding to a T-score of -2.2, and a Z-score of -0.9. This is indicative of osteopenia. The bone mineral density of the left femoral neck is 0.651 g/cm2, corresponding to a T-score of -2.8, and a Z-score of -1.3. This is indicative of osteoporosis. MM/XR DEXA axial skeleton IMPRESSION: Based on bone mineral density, and according to World Health Organization (WHO) criteria, the diagnosis is consistent with osteoporosis. Statistically, 68% of repeat scans fall within 1 SD (+/- 0.010 g/cm2 for AP spine L1-L4) and 1 SD (+/- 0.012 g/cm2 for femur total) FRAX is a trademark of the [employer] [place] [employer] Met[employer] Disease, a World Health Organization (WHO) Collaborating Center. Electronically signed by: Mak Patel MD 06/05/2025 11:33 AM EST
--- OUTSIDE RECORDS SUMMARY | 2025-06-05 21:36 | XMS_ITS | Encounter Summary ---
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 Patient understood. Called bowling or skating front desk clerk and spoke with Genna and provided a run through of our conversation DR documented in this encounter Plan of Treatment Upcoming Encounters Date Type Department Care Team (Late st Contact Info) Description 06/21/2025 8:45 AM EST Office Visit [facility] ADULT DENTAL [address] [place] [address] Corina Carney documented as of this encounter Visit Diagnoses Not on filedocumented in this encounter
--- OUTSIDE RECORDS SUMMARY | 2025-06-05 21:36 | XMS_ITS | Encounter Summary ---
Author Organization [facility] [facility] Address [address] [place] [address] Care Team Providers Care Route Sales Specialist Name Role Phone Unavailable Primary Care Provider Unavailabl e Reason for Visit * Reason Onset Date Comments [facility] prophy 05/13/2025 Encounter Details Date Type Department Care Team (Late Contact Info) Description 05/13/2025 Telephone [facility] ADULT DENTAL [address] [place] [address] Corina Carney [facility] prophy Social History Tobacco Use Types [...] Patient would like to get cleaings in [facility] vs [facility]. documented in this encounter Plan of Treatment Upcoming Encounters Date Type Department Care Team (Late st Contact Info) Description 06/21/2025 8:45 AM EST Office Visit [facility] ADULT DENTAL [address] [place] [address] Corina Carney documented as of this encounter Visit Diagnoses Not on filedocumented in this encounter
--- OUTSIDE RECORDS SUMMARY | 2025-06-05 21:36 | XMS_ITS | Clinical Summary ---
Author Organization [facility] Address [address] [place] [address] Care Team Providers Care Resaw Machine Operator Name Role Phone Unavailable Primary Care Provider [...] Type Department Care Team Description 05/23/2025 Telephone [facility] ADULT DENTAL [address] [place] [address] Corina Carney 05/13/2025 Telephone [facility] ADULT DENTAL [address] [place] [address] Corina Carney [facility] prophy from Last 3 Months Social History [...] Description 06/21/2025 8:45 AM EST Office Visit [facility] [address] [facility] [place] [address] Corina Carney Health Maintenance Due Date Last [...] exists Dental X-Ray: Bitewings 04/25/2025 04/24/2024, 03/06 COVID-19 Vaccine ( season) 2025 04/20/2025, 04/01/2024, 04/28/2023, Additional history exists Tobacco Screening 01/11/2026 01/11/2025 Dental X-Ray: Full [...] Most Recently Relevant to Health Maintenance Insurance [facility] MEDIC[facility] REPLACEMENT PPO DENTAL - [facility] D[facility]
== END 2025-06-05 10:57 | disposition home or self-care (01) ==
LOC: HO.MAMMO 10:56
PROVIDERS: PCP Internal Medicine; Visit Provider Internal Medicine
DX: M81.0 Age-related osteoporosis without current pathological fracture (principal); M85.89 Other specified disorders of bone density and structure, multiple sites
CPT/HCPCS: 77080

== ENCOUNTER → 2025-06-05 11:00 | Outpatient (BNV) | payer MEDICARE, SELFPAY | PROVIDERS: PCP Internal Medicine; Visit Provider Radiology Diagnostic Radiology | DX: E28.39 Other primary ovarian failure (principal) | CPT/HCPCS: 77080 ==